=== PATIENT | female | born 1955 | race African-American/Black ===

== ENCOUNTER 2016-08-01 09:50 | Emergency (ER) | payer MEDICARE, MEDICAID ==
[2016-08-01 10:13] VITALS: BP 154/80
[2016-08-01] MEDS ORDERED: LISINOPRIL 10 MG TABLET PO ONE (10:22)
[2016-08-01] MEDS ORDERED: METOPROLOL TARTRATE 25 MG TABLET PO ONE (10:23)
--- NOTE | 2016-08-01 10:26 | ER Document Report ---
ED Blood Pressure Problem - General Chief Complaint: Blood Pressure Problem Stated Complaint: BLOOD PRESSURE PROBLEMS Time Seen by Provider: 08/01/16 10:15 Notes: The patient is a 61-year-old female, past medical history RSD, anemia, hypertension, presents from the pain management clinic after her blood pressure was noticed to be 208/98. She left her lisinopril 10 mg daily and metoprolol 25 mg daily in [place] 2 weeks ago and has not had her blood pressure medications. She is unable to fill the prescription until 3 days from now when she received a check. She is under a lot of stress at home. Denies chest pain , shortness of breath, nausea, abdominal pain, vomiting, back pain, numbness, tingling or headache. TRAVEL OUTSIDE OF THE [place] IN LAST 30 DAYS: No - Related Data Allergies/Adverse Reactions: No Known Allergies Allergy (Verified 08/01/16 10:01) Past Medical History - General Information source: Patient - Social History Smoking Status: Unknown if Ever Smoked Family History: CAD, DM, Thyroid Disfunction, Other Patient has suicidal ideation: No Patient has homicidal ideation: No - Past Medical History Cardiac Medical History: Reports: Hx Hypercholesterolemia, Hx Hypertension Denies: Hx Congestive Heart Failure, Hx Coronary Artery Disease, Hx DVT, Hx Pulmonary Embolism Pulmonary Medical History: Reports: Hx Bronchitis, Hx COPD Neurological Medical History: Reports: Hx Migraine, Hx Seizures Endocrine Medical History: Denies: Hx Diabetes Mellitus Type 1, Hx Diabetes Mellitus Type 2, Hx Hyperthyroidism, Hx Hypothyroidism Renal/ Medical History: Denies: Hx Peritoneal Dialysis GI Medical History: Reports: Hx Gastroesophageal Reflux Disease. Denies: Hx Cirrhosis, Hx Hepatitis Musculoskeltal Medical History: Reports Hx Arthritis Psychiatric Medical History: Reports: Hx Depression Infectious Medical History: Denies: Hx Hepatitis Past Surgical History: Reports: Hx Hysterectomy, Hx Orthopedic Surgery - Left ankle fusion., Hx Vascular Surgery - Right carotid artery stent, 2011. Coiling of intracerebral aneurysm, 2011., Other - Colonoscopy in the . - Immunizations Immunizations up to date: No Hx Diphtheria, Pertussis, Tetanus Vaccination: No Review of Systems - Review of Systems Notes: REVIEW OF SYSTEMS: CONSTITUTIONAL: -fevers, -chills EENT: -eye pain, -difficulty swallowing, -nasal congestion CARDIOVASCULAR:-chest pain, -syncope. RESPIRATORY: -cough, -SOB GASTROINTESTINAL: -abdominal pain, -nausea, -vomiting, -diarrhea GENITOURINARY: -dysuria, -hematuria MUSCULOSKELETAL: -back pain, -neck pain SKIN: -rash or skin lesions. HEMATOLOGIC: -easy bruising or bleeding. LYMPHATIC: -swollen, enlarged glands. NEUROLOGICAL: -altered mental status or loss of consciousness, -headache, - neurologic symptoms PSYCHIATRIC: -anxiety, -depression. ALL OTHER SYSTEMS REVIEWED AND NEGATIVE. Physical Exam - Vital signs Vitals: Temp Pulse Resp BP Pulse Ox 97.9 F 55 L 20 154/80 H 98 08/01/16 10:08/01/16 10:08/01/16 10:08/01/16 10:08/01/16 10:01 - Notes Notes: PHYSICAL EXAMINATION: GENERAL: Well-appearing, well-nourished and in no acute distress. HEAD: Atraumatic, normocephalic. EYES: Pupils equal round and reactive to light, extraocular movements intact, sclera anicteric, conjunctiva are normal. ENT: nares patent, oropharynx clear without exudates. Moist mucous membranes. NECK: Normal range of motion, supple without lymphadenopathy LUNGS: Breath sounds clear to auscultation bilaterally and equal. No wheezes rales or rhonchi. HEART: Regular rate and rhythm without murmurs ABDOMEN: Soft, nontender, normoactive bowel sounds. No guarding, no rebound. No masses appreciated. EXTREMITIES: Normal range of motion, no pitting or edema. No cyanosis. NEUROLOGICAL: Cranial nerves grossly intact. Normal speech, normal gait. Normal sensory and motor exams. PSYCH: Normal mood, normal affect. SKIN: Warm, Dry, normal turgor, no rashes or lesions noted. Course - Re-evaluation Re-evalutation: Patient with asymptomatic hypertension because she has not taken her blood pressure medications in 2 weeks. Her blood pressure in the emergency room is 154/92. Instructed her to call her primary care physician to have her blood pressure rechecked. Patient says that she have her lisinopril and metoprolol waiting for her at the [facility], but she is unable to afford them for 3 days. Her with the dose today and also prescription in case she is unable to mixing picker tender her prescriptions. Given return precautions and she understands. - Vital Signs Vital signs: Temp Pulse Resp BP Pulse Ox 97.9 F 55 L 20 154/80 H 98 08/01/16 10:01 08/01/16 10:01 08/01/16 10:18 08/01/16 10:01 08/01/16 10:01 Discharge - Discharge Clinical Impression: Hypertension Qualifiers: Hypertension type: unspecified secondary hypertension Qualified Code(s): I15.9 - Secondary hypertension, unspecified Condition: Stable Disposition: HOME, SELF-CARE Additional Instructions: You must call Dr. Santana for refill of your blood pressure medications and to have your blood pressure rechecked. HIGH BLOOD PRESSURE REQUIRING TREATMENT: Your blood pressure is high. This is called "hypertension." Today's reading was 156/92 (normal is less than 140/90). Your history and exam suggest that this is not a temporary problem. You need treatment of your blood pressure. If left untreated, high blood pressure greatly increases your risk of heart attack and stroke. Please don't ignore this problem. If you have blood pressure medicine but aren't using it regularly, start taking it again. Some simple things you can do to help are: Get some aerobic exercise for at least 20 minutes on a daily basis. (See your doctor before beginning any new exercise program.) Eat a low-fat diet. Lose excess weight. Avoid salty foods and avoid adding salt to any of the foods you eat. Avoid diet pills, decongestants, "energizing" herbs, and other medicines that elevate blood pressure. There are many different medicines that treat blood pressure. If your medication causes unpleasant side effects, call your doctor. There are others you can try. Treating hypertension is a life-long investment in your health. ANGIOTENSIN CONVERTING ENZYME INHIBITOR MEDICATION: "CARLA inhibitor" drugs are used to lower high blood pressure (or to reduce the "work" of the heart in patients with heart failure). These drugs block an enzyme that makes your blood vessels constrict and makes you retain salt. The result is lower blood pressure. CARLA inhibitors cause few side effects. The most common side effect is a dry nagging cough. Occasionally, lightheadedness may occur while you get used to the medicine. Some patients may retain extra potassium (this is a problem if you are taking potassium supplements, potassium-containing salt substitutes, or a potassium-retaining drug such as triamterene, spironolactone, or amiloride) . If you are taking lithium, the lithium level must be rechecked after starting an CARLA inhibitor. CARLA inhibitors should NOT be used during . Contact the doctor or return if you develop severe lightheadedness, wheeze , weakness, palpitations or other new symptoms. BETA BLOCKERS: You have been given a prescription for a beta-donnie medication. This class of drugs is used for many purposes, including angina, high blood pressure , heart rhythm disturbances, tremors, and migraines. The medication works by interfering with the effects of the sympathetic nervous system (the sympathetic system has adrenaline-like effects of constricting blood vessels, increasing heart rate, and increasing blood pressure). This medication is usually well-tolerated. However, some patients have side effects such as fatigue, depression, or dizziness. Persons with asthma may develop wheezing from this medicine. Contact your doctor if you are bothered by any side effects. Do not take any cold or allergy medication without first consulting your doctor. Do not stop the medicine without consulting your doctor, as a "rebound " worsening of your condition can result. FOLLOW-UP CARE: If you have been referred to a physician for follow-up care, call the physician s office for an appointment as you were instructed or within the next two days. If you experience worsening or a significant change in your symptoms, notify the physician immediately or return to the Emergency Department at any time for re-evaluation. Prescriptions: Lisinopril 10 mg PO DAILY #30 tablet Metoprolol Tartrate 25 mg PO DAILY #30 tablet Referrals: NAJMA SANTANA, MASSIMOC [COMMUNITY BASED STAFF] - Follow up as needed
== END 2016-08-01 10:34 | disposition home or self-care (01) ==
LOC: ER 09:50
DX: I15.9 Secondary hypertension, unspecified (principal); J44.9 Chronic obstructive pulmonary disease, unspecified; E78.00 Pure hypercholesterolemia, unspecified; Z90.710 Acquired absence of both cervix and uterus; Z98.1 Arthrodesis status; Z91.128 Patient's intentional underdosing of medication regimen for other reason; Z91.14 Patient's other noncompliance with medication regimen
CPT/HCPCS: 99283; A9270 ×2

== ENCOUNTER 2016-12-20 11:42 | Emergency (ER) | payer MEDICARE, MEDICAID ==
[2016-12-20 13:11] LABS: ABSOLUTE BASOPHILS # (AUTO) 0.1 10^3/uL (0.0-0.2); ABSOLUTE EOSINOPHILS # (AUTO) 0.2 10^3/uL (0.0-0.6); ABSOLUTE MONOCYTES (AUTO) 0.6 10^3/uL (0.1-1.4); ABSOLUTE NEUT (AUTO) 7.4 10^3/uL (1.7-8.2); BASOPHILS % (AUTO) 1.2 % (0-2); EOSINOPHILS % (AUTO) 2.1 % (0-6); HEMATOCRIT 42.4 % (36.0-47.0); HEMOGLOBIN 13.9 g/dL (12.0-15.5); HGB HCT DIFFERENCE -0.7; LYMPHOCYTES % (AUTO) 26.5 % (13-45); MEAN CORPUSCULAR HEMOGLOBIN 27.7 pg (27.0-33.4); MEAN CORPUSCULAR HGB CONC 32.8 g/dL (32.0-36.0); MEAN CORPUSCULAR VOLUME 85 fl (80-97); MONOCYTES % (AUTO) 5.2 % (3-13); RED BLOOD COUNT 5.01 10^6/uL (3.72-5.28); WHITE BLOOD COUNT 11.5 10^3/uL (4.0-10.5)
--- NOTE | 2016-12-20 13:18 | RADIOLOGY REPORT (SQ) ---
EXAM DESCRIPTION: CHEST PA/LAT COMPLETED DATE/TIME: 12/20/2016 1:07 pm REASON FOR STUDY: cough COMPARISON: 07/09/2015. EXAM PARAMETERS: NUMBER OF VIEWS: two views TECHNIQUE: Digital Frontal and Lateral radiographic views of the chest acquired. RADIATION DOSE: NA LIMITATIONS: none FINDINGS: LUNGS AND PLEURA: No opacities, masses or pneumothorax. No pleural effusion. MEDIASTINUM AND HILAR STRUCTURES: No masses or contour abnormalities. HEART AND VASCULAR STRUCTURES: Heart normal size. No evidence for failure. BONES: No acute findings. HARDWARE: Vascular access port with the tip directed into the mid neck on the right side. OTHER: No other significant finding. IMPRESSION: NO SIGNIFICANT RADIOGRAPHIC FINDING IN THE CHEST. VASCULAR ACCESS PORT DESCRIBED. TECHNICAL DOCUMENTATION: JOB ID: [id number] [employer]- All Rights Reserved
[2016-12-20 13:38] LABS: ALANINE AMINOTRANSFERASE 33 U/L (9-52); ALBUMIN 4.5 g/dL (3.5-5.0); ALKALINE PHOSPHATASE 104 U/L (38-126); ANION GAP 15 (5-19); ASPARTATE AMINO TRANSFERASE 23 U/L (14-36); BILIRUBIN,DIRECT 0.3 mg/dL (0.0-0.4); BILIRUBIN,TOTAL 0.4 mg/dL (0.2-1.3); BLOOD UREA NITROGEN 14 mg/dL (7-20); CALCIUM 10.1 mg/dL (8.4-10.2); CARBON DIOXIDE 22 mmol/L (22-30); CHLORIDE 109 mmol/L (98-107); CREATININE RESULT 0.76 mg/dL (0.52-1.25); GLUCOSE 75 mg/dL (75-110); POTASSIUM 4.2 mmol/L (3.6-5.0); SODIUM 146.1 mmol/L (137-145); TOTAL PROTEIN 7.9 g/dL (6.3-8.2)
--- NOTE | 2016-12-20 14:40 | ER Document Report ---
ED Cardiac - General Chief Complaint: Chest Pain Stated Complaint: CHEST PAIN Time Seen by Provider: 12/20/16 12:03 Mode of Arrival: Ambulatory Information source: Patient Notes: Patient states she had chest and throat pain starting yesterday. It has been constant. It is mainly substernal and a pressure sensation. Nothing makes it better or worse. Does not radiate. It is been mild to moderate. She denies any abdominal pain. No vomiting or diarrhea. She has has cough and congestion. TRAVEL OUTSIDE OF THE [place] IN LAST 30 DAYS: No - Related Data Allergies/Adverse Reactions: No Known Allergies Allergy (Verified 12/20/16 11:54) Past Medical History - General Information source: Patient - Social History Smoking Status: Current Every Day Smoker Chew tobacco use (# tins/day): No Frequency of alcohol use: None Drug Abuse: None Family History: CAD, DM, Thyroid Disfunction, Other Patient has suicidal ideation: No Patient has homicidal ideation: No - Past Medical History Cardiac Medical History: Reports: Hx Hypercholesterolemia, Hx Hypertension Denies: Hx Congestive Heart Failure, Hx Coronary Artery Disease, Hx DVT, Hx Pulmonary Embolism Pulmonary Medical History: Reports: Hx Bronchitis, Hx COPD Neurological Medical History: Reports: Hx Migraine, Hx Seizures Endocrine Medical History: Denies: Hx Diabetes Mellitus Type 1, Hx Diabetes Mellitus Type 2, Hx Hyperthyroidism, Hx Hypothyroidism Renal/ Medical History: Denies: Hx Peritoneal Dialysis GI Medical History: Reports: Hx Gastroesophageal Reflux Disease. Denies: Hx Cirrhosis, Hx Hepatitis Musculoskeltal Medical History: Reports Hx Arthritis Psychiatric Medical History: Reports: Hx Depression Infectious Medical History: Denies: Hx Hepatitis Past Surgical History: Reports: Hx Hysterectomy, Hx Orthopedic Surgery - Left ankle fusion., Hx Vascular Surgery - Right carotid artery stent, 2011. Coiling of intracerebral aneurysm, 2011., Other - Colonoscopy in the . - Immunizations Immunizations up to date: No Hx Diphtheria, Pertussis, Tetanus Vaccination: No Review of Systems - Review of Systems Constitutional: Chills, Malaise Cardiovascular: Chest pain. denies: Palpitations Respiratory: Cough, Short of breath -: Yes All other systems reviewed and negative Physical Exam - Vital signs Vitals: Temp Pulse Resp BP Pulse Ox 98.4 F 59 L 18 141/73 H 100 12/20/16 11:54 12/20/16 11:54 12/20/16 11:54 12/20/16 11:54 12/20/16 11:54 Interpretation: Hypertensive - General General appearance: Appears well, Alert In distress: None - HEENT Head: Normocephalic, Atraumatic Eyes: Normal Pupils: PERRL - Respiratory Respiratory status: No respiratory distress Chest status: Nontender Breath sounds: Rhonchi - bialt Chest palpation: Normal - Cardiovascular Rhythm: Regular Heart sounds: Normal auscultation Murmur: No - Abdominal Inspection: Normal Distension: No distension Bowel sounds: Normal Tenderness: Nontender Organomegaly: No organomegaly - Back Back: Normal, Nontender - Extremities General upper extremity: Normal inspection, Nontender, Normal color, Normal ROM , Normal temperature General lower extremity: Normal inspection, Nontender, Normal color, Normal ROM , Normal temperature, Normal weight bearing. No: Candice's sign - Neurological Neuro grossly intact: Yes Cognition: Normal Orientation: AAOx4 [place] Coma Scale Eye Opening: Spontaneous [place] Coma Scale Verbal: Oriented [place]anna Coma Scale Motor: Obeys Commands [place] Coma Scale Total: 15 Speech: Normal Motor strength normal: LUE, RUE, LLE, RLE Sensory: Normal - Psychological Associated symptoms: Normal affect, Normal mood - Skin Skin Temperature: Warm Skin Moisture: Dry Skin Color: Normal Course - Vital Signs Vital signs: Temp Pulse Resp BP Pulse Ox 98.4 F 59 L 18 141/73 H 100 12/20/16 11:54 12/20/16 11:54 12/20/16 11:54 12/20/16 11:54 12/20/16 11:54 - Laboratory Result Diagrams: 12/20/16 13:00 12/20/16 13:00 Laboratory results interpreted by me: 12/20/16 12/20/16 13:00 13:00 WBC 11.5 H RDW 16.0 H Sodium 146.1 H Chloride 109 H - Diagnostic Test Radiology reviewed: Image reviewed, Reports reviewed - No evidence of infiltrate or edema Discharge - Discharge Clinical Impression: URI (upper respiratory infection) Qualifiers: URI type: unspecified URI Qualified Code(s): J06.9 - Acute upper respiratory infection, unspecified Condition: Stable Disposition: HOME, SELF-CARE Instructions: Upper Respiratory Illness ([facility]) Additional Instructions: Please call your primary care physician as soon as possible to arrange follow- up. Prescriptions: Benzonatate [Tessalon Perle 100 mg Capsule] 100 mg PO Q8HP PRN #40 cap PRN Reason: Cefdinir 300 mg PO BID #14 capsule Forms: Return to Work
[2016-12-20 14:57] VITALS: BP 135/70
--- NOTE | 2016-12-21 00:02 | EKG REPORT ---
SEVERITY:- NORMAL ECG - SINUS RHYTHM : Confirmed by: Rhonda Car 21-Dec-2016 00:01:32
== END 2016-12-20 14:57 | disposition home or self-care (01) ==
LOC: ER 11:42
DX: J06.9 Acute upper respiratory infection, unspecified (principal); R07.9 Chest pain, unspecified; R07.0 Pain in throat; F17.200 Nicotine dependence, unspecified, uncomplicated
CPT/HCPCS: 36415; 71020; 80053; 85025; 93005; 93010; 99285

== ENCOUNTER 2017-02-06 20:02 | Emergency (ER) | payer MEDICARE, MEDICAID ==
[2017-02-06 20:32] LABS: ABSOLUTE BASOPHILS # (AUTO) 0.1 10^3/uL (0.0-0.2); ABSOLUTE EOSINOPHILS # (AUTO) 0.1 10^3/uL (0.0-0.6); ABSOLUTE LYMPHOCYTES (AUTO) 1.9 10^3/uL (0.5-4.7); ABSOLUTE MONOCYTES (AUTO) 0.6 10^3/uL (0.1-1.4); BASOPHILS % (AUTO) 0.7 % (0-2); EOSINOPHILS % (AUTO) 0.7 % (0-6); HEMATOCRIT 43.7 % (36.0-47.0); HEMOGLOBIN 14.3 g/dL (12.0-15.5); LYMPHOCYTES % (AUTO) 22.5 % (13-45); MEAN CORPUSCULAR HEMOGLOBIN 28.2 pg (27.0-33.4); MEAN CORPUSCULAR HGB CONC 32.8 g/dL (32.0-36.0); MEAN CORPUSCULAR VOLUME 86 fl (80-97); MONOCYTES % (AUTO) 6.8 % (3-13); PLATELET COUNT 301 10^3/uL (150-450); RED BLOOD COUNT 5.08 10^6/uL (3.72-5.28); RED CELL DISTRIBUTION WIDTH 14.8 % (11.5-14.0); SEGMENTED NEUTROPHILS % (AUTO) 69.3 % (42-78); TOTAL CELLS COUNTED % (AUTO) 100 %; WHITE BLOOD COUNT 8.6 10^3/uL (4.0-10.5)
[2017-02-06 20:52] LABS: ALANINE AMINOTRANSFERASE 21 U/L (9-52); ALBUMIN 4.5 g/dL (3.5-5.0); ALKALINE PHOSPHATASE 97 U/L (38-126); ANION GAP 10 (5-19); ASPARTATE AMINO TRANSFERASE 23 U/L (14-36); BILIRUBIN,DIRECT 0.3 mg/dL (0.0-0.4); BILIRUBIN,TOTAL 0.3 mg/dL (0.2-1.3); BLOOD UREA NITROGEN 9 mg/dL (7-20); CALCIUM 9.8 mg/dL (8.4-10.2); CARBON DIOXIDE 25 mmol/L (22-30); CHLORIDE 106 mmol/L (98-107); GLUCOSE 93 mg/dL (75-110); POTASSIUM 3.5 mmol/L (3.6-5.0); SODIUM 141.2 mmol/L (137-145); TOTAL PROTEIN 8.1 g/dL (6.3-8.2)
--- NOTE | 2017-02-06 20:59 | ER Document Report ---
ED Medical Screen (RME) - General Chief Complaint: Headache, Worst Ever Stated Complaint: SEVERE HEADACHE Time Seen by Provider: 02/06/17 20:46 Notes: 61-year-old female, chief complaint of tripping and falling and hitting her right head/neck area on a chair, states she has had a bad headache since that time, states she vomited, she had a fall injury this morning and she has had a progressively worsening headache throughout the day. She is not on a blood thinner. She denies visual changes, focal numbness or weakness. She denies any other areas of pain including chest, hip, back. Past medical history of both migraines and brain aneurysm. TRAVEL OUTSIDE OF THE [place] IN LAST 30 DAYS: No - Related Data Allergies/Adverse Reactions: No Known Allergies Allergy (Verified 12/20/16 11:54) Past Medical History - Past Medical History Cardiac Medical History: Reports: Hx Hypercholesterolemia, Hx Hypertension Denies: Hx Congestive Heart Failure, Hx Coronary Artery Disease, Hx DVT, Hx Pulmonary Embolism Pulmonary Medical History: Reports: Hx Bronchitis, Hx COPD Neurological Medical History: Reports: Hx Migraine, Hx Seizures Endocrine Medical History: Denies: Hx Diabetes Mellitus Type 1, Hx Diabetes Mellitus Type 2, Hx Hyperthyroidism, Hx Hypothyroidism Renal/ Medical History: Denies: Hx Peritoneal Dialysis GI Medical History: Reports: Hx Gastroesophageal Reflux Disease. Denies: Hx Cirrhosis, Hx Hepatitis Musculoskeltal Medical History: Reports Hx Arthritis Psychiatric Medical History: Reports: Hx Depression Infectious Medical History: Denies: Hx Hepatitis Past Surgical History: Reports: Hx Hysterectomy, Hx Orthopedic Surgery - Left ankle fusion., Hx Vascular Surgery - Right carotid artery stent, 2011. Coiling of intracerebral aneurysm, 2011., Other - Colonoscopy in the . - Immunizations Immunizations up to date: No Hx Diphtheria, Pertussis, Tetanus Vaccination: No Physical Exam - Vital signs Vitals: Temp Pulse Resp BP Pulse Ox 98.7 F 59 L 20 189/89 H 98 02/06/17 20:02 02/06/17 20:02 02/06/17 20:02 02/06/17 20:02 02/06/17 20:02 - Neurological Neuro grossly intact: Yes Cognition: Normal Orientation: AAOx4 [place] Coma Scale Eye Opening: Spontaneous [place] Coma Scale Verbal: Oriented [place] Coma Scale Motor: Obeys Commands Rosanna Coma Scale Total: 15 Speech: Normal Cranial nerves: Normal Cerebellar coordination: Normal Motor strength normal: LUE, RUE, LLE, RLE 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 This apparently was initiated on protocol from [facility]. Patient with no midline cervical tenderness, only over the cervical spinal areas. Patient uncomfortable but no focal neurological deficits. All results are still pending , I'm told patient has a room assignment already, will have pending results obtained before additional tests are ordered. - Vital Signs Vital signs: Temp Pulse Resp BP Pulse Ox 98.7 F 59 L 20 189/89 H 98 02/06/17 20:02 02/06/17 20:02 02/06/17 20:02 02/06/17 20:02 02/06/17 20:02 - Laboratory Result Diagrams: 02/06/17 20:20 02/06/17 20:20 Laboratory results interpreted by me: 02/06/17 20:20 RDW 14.8 H
--- NOTE | 2017-02-06 21:32 | RADIOLOGY REPORT (SQ) ---
EXAM DESCRIPTION: CT HEAD WITHOUT COMPLETED DATE/TIME: 02/06/2017 8:39 pm REASON FOR STUDY: headache COMPARISON: CT brain 07/09/2015, 01/22/2016 TECHNIQUE: Axial images acquired through the brain without intravenous contrast. Images reviewed wi th bone, brain and subdural windows. Images stored on PACS. All CT scanners at this facility use dose modulation, iterative reconstruction, and/or weight based d osing when appropriate to reduce radiation dose to as low as reasonably achievable (ALARA). [facility]: Dose Right [facility]: CareDose [facility]: Dose Right [facility]: Teradose 4D [facility]: [employer] RADIATION DOSE: CT Rad equipment meets quality standard of care and radiation dose reduction techniq ues were employed. CTDIvol: 67.0 mGy. DLP: 1182 mGy-cm. mGy. LIMITATIONS: None. FINDINGS: VENTRICLES: Normal size and contour. CEREBRUM: Old infarct in the right basal ganglia. Minimal bifrontal and biparietal small vessel isch emic change in the deep hemispheric white matter, stable. Old right carotid terminus region aneurysm coil. CEREBELLUM: No masses. No hemorrhage. No alteration of density. No evidence for acute infarction. EXTRAAXIAL SPACES: No fluid collections. No masses. ORBITS AND GLOBE: No intra- or extraconal masses. Normal contour of globe without masses. CALVARIUM: No fracture. PARANASAL SINUSES: No fluid or mucosal thickening. SOFT TISSUES: No mass or hematoma. OTHER: No other significant finding. 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 Spotty chronic small vessel ischemic change in the hemispheric white matter No acute findings. In particular, no acute intracranial hemorrhage is identified EVIDENCE OF ACUTE STROKE: NO. COMMENT: Quality ID # [id number]: Final reports with documentation of one or more dose reduction techniques (e.g., Automated exposure control, adjustment of the mA and/or kV according to patient size, use of iterative reconstruction technique) TECHNICAL DOCUMENTATION: JOB ID: [id number]- All Rights Reserved
[2017-02-06] MEDS ORDERED: METOCLOPRAMIDE HCL INJ/PF 10 MG/2 ML SDV IV ONE (21:37)
[2017-02-06] MEDS ORDERED: DEXAMETHASONE SOD PHOSPHATE INJ 4 MG/1 ML VIAL IV ONE (21:37)
[2017-02-06] MEDS ORDERED: KETOROLAC TROMETHAMINE INJ/PF 30 MG/1 ML SDV IV ONE (21:37)
[2017-02-06] MEDS ORDERED: HYDRALAZINE HCL INJ/PF 20 MG/1 ML SDV IV ONE (21:37)
[2017-02-06] MEDS ORDERED: DIPHENHYDRAMINE HCL 50 MG/ML VIAL IV ONE (21:37)
--- NOTE | 2017-02-06 22:22 | ER Document Report ---
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 Is accompanied by some severe photophobia. She has no nausea vomiting or focal neurologic symptoms. She said that a few hours ago she got lip tingling but that is better. She has not taken anything for the pain. She does not take blood thinners. She has no neck pain or stiffness. No fever. TRAVEL OUTSIDE OF THE [place] IN LAST 30 DAYS: No - Related Data Allergies/Adverse Reactions: No Known Allergies Allergy (Verified 12/20/16 11:54) Past Medical History - Social History Smoking Status: Unknown if Ever Smoked Frequency of alcohol use: None Drug Abuse: None Family History: CAD, DM, Thyroid Disfunction, Other Patient has suicidal ideation: No Patient has homicidal ideation: No - Past Medical History Cardiac Medical History: Reports: Hx Hypercholesterolemia, Hx Hypertension Denies: Hx Congestive Heart Failure, Hx Coronary Artery Disease, Hx DVT, Hx Pulmonary Embolism Pulmonary Medical History: Reports: Hx Bronchitis, Hx COPD Neurological Medical History: Reports: Hx Migraine, Hx Seizures Endocrine Medical History: Denies: Hx Diabetes Mellitus Type 1, Hx Diabetes Mellitus Type 2, Hx Hyperthyroidism, Hx Hypothyroidism Renal/ Medical History: Denies: Hx Peritoneal Dialysis GI Medical History: Reports: Hx Gastroesophageal Reflux Disease. Denies: Hx Cirrhosis, Hx Hepatitis Musculoskeltal Medical History: Reports Hx Arthritis Psychiatric Medical History: Reports: Hx Depression Infectious Medical History: Denies: Hx Hepatitis Past Surgical History: Reports: Hx Hysterectomy, Hx Orthopedic Surgery - Left ankle fusion., Hx Vascular Surgery - Right carotid artery stent, 2012. Coiling of intracerebral aneurysm, 2012., Other - Colonoscopy in the . - Immunizations Immunizations up to date: No Hx Diphtheria, Pertussis, Tetanus Vaccination: No Review of Systems - Review of Systems Notes: REVIEW OF SYSTEMS GEN: Denies fever, chills, weight loss ENT: Denies sore throat, nasal discharge, ear pain EYES: Denies blurry vision, eye pain, discharge. Positive photophobia. CV: Denies chest pain, palpitations, edema RESP: Denies cough, shortness of breath, wheezing GI: Denies abdominal pain, nausea, vomiting, diarrhea MSK: Denies joint pain/swelling, edema, SKIN: Denies rash, skin lesions LYMPH: Denies swollen glands/lymph nodes NEURO: Positive headache, denies focal weakness or numbness, dizziness PSYCH: Denies depression, suicidal or homicidal ideation PHYSICAL EXAMINATION General: No acute distress, well-nourished has her eyes covered up. Head: Atraumatic, normocephalic ENT: Mouth normal, oropharynx moist, no exudates or tonsillar enlargement Eyes: Conjunctiva normal, pupils equal, lids normal Neck: No JVD, supple, no guarding CVS: Normal rate, regular rhythm, no murmurs Resp: No resp distress, equal and normal breath sounds bilaterally GI: Nondistended, soft, no tenderness to palpation, no rebound or guarding Ext: No deformities, no edema, normal range of motion in upper and lower ext Back: No CVA or midline TTP Skin: No rash, warm Lymphatic: No lymphadeopathy noted Neuro: Awake, alert. Face symmetric. GCS 15. Drift. Physical Exam - Vital signs Vitals: Temp Pulse Resp BP Pulse Ox 98.7 F 59 L 20 189/89 H 98 02/06/17 20:02 02/06/17 20:02 02/06/17 20:02 02/06/17 20:02 02/06/17 20:02 Course - Re-evaluation Re-evalutation: 02/06/17 22:22 61-year-old lady with history of headaches, some with migrainous features, and coiled aneurysms presents with headache after a fall which has migrainous features. No fever or neck stiffness. She does say that is worse than her usual headaches, and there are several notes documenting "worst headache of her life" in the nursing notes. That said, it was directly related to a trauma. Time course would suggest this is a postconcussive type headache with migrainous features. I do not think she has a subarachnoid bleed. A CT head was ordered at triage which is read normal. She also has significant hypertension which is either a result of the headache or could be contributing to it. Will gently lower her pressure with some hydralazine. Will reassess. 02/06/17 22:22 02/06/17 22:26 02/06/17 22:[address] is negative. She was reassessed at 10:45 PM. Her photophobia is much better and her headache is slightly better. I will give her a round of narcotic. Plan to discharge with NSAID to follow-up with primary care - Vital Signs Vital signs: Temp Pulse Resp BP Pulse Ox 98.7 F 59 L 20 189/89 H 98 02/06/17 20:02 02/06/17 20:02 02/06/17 20:02 02/06/17 20:02 02/06/17 20:02 - Laboratory Result Diagrams: 02/06/17 20:20 02/06/17 20:20 Laboratory results interpreted by me: 02/06/17 02/06/17 20:20 20:20 RDW 14.8 H Potassium 3.5 L - Diagnostic Test Radiology reviewed: Image reviewed, Reports reviewed Discharge - Discharge Clinical Impression: Headache, post-traumatic, acute Concussion Qualifiers: Encounter type: initial encounter Loss of consciousness presence/duration: without LOC Qualified Code(s): S06.0X0A - Concussion without loss of consciousness, initial encounter Condition: Good Disposition: HOME, SELF-CARE Instructions: Concussion ([facility]), Migraine Headache ([facility]) Prescriptions: Naproxen 500 mg PO BID 7 Days #14 tablet Referrals: NAJMA ALONZO, DREDGE MATE-C [Primary Care Provider] - Follow up as needed
[2017-02-06] MEDS ORDERED: MORPHINE SULFATE 10 MG/ML INJ IV ONE (22:45)
[2017-02-07 00:11] VITALS: BP 139/59
== END 2017-02-07 00:14 | disposition home or self-care (01) ==
LOC: ER 20:02
DX: G44.319 Acute post-traumatic headache, not intractable (principal); S06.0X0A Concussion without loss of consciousness, initial encounter; W08.XXXA Fall from other furniture, initial encounter; E78.00 Pure hypercholesterolemia, unspecified; I10 Essential (primary) hypertension; J44.9 Chronic obstructive pulmonary disease, unspecified; Z90.710 Acquired absence of both cervix and uterus
CPT/HCPCS: 99284; 96374; 96375; 36415; 85025; 80053; 70450; J1100; J1200; J0360; J1885; J2765; J2270

== ENCOUNTER 2019-07-09 15:31 | Emergency (ER) | payer MEDICARE, MEDICAID ==
--- NOTE | 2019-07-09 16:01 | ER Document Report ---
ED Medical Screen (RME) - General Chief Complaint: Flank Pain Stated Complaint: RIGHT FLANK PAIN Time Seen by Provider: 07/09/19 15:53 Primary Care Provider: NAJMA ALONZO FNP-C [Primary Care Provider] - Follow up as needed Mode of Arrival: Wheelchair Notes: HPI; 64-year-old female presents emergency room via EMS for complaints. States she initially called EMS for right flank pain. Was given 30 mg of Toradol by EMS with relief of her flank pain. Is now complaining of a lump to her left arm, worsening chronic upper back and neck pain. Also states she is not had a bowel movement in 3 days even though she has been taking stool softeners. Complains of loss of taste and smell that started a week ago. She denies any recent travel. She denies any COVID-19 exposure. PE: Alert and oriented x3. Moderate distress noted. Lungs clear to auscultation without rales, rhonchi, or wheezes. Heart: Regular rate rhythm without murmurs, rubs, gallops. I have greeted and performed a rapid initial assessment of this patient. A comprehensive ED assessment and evaluation of the patient, analysis of test results and completion of the medical decision making process will be conducted by additional ED providers. I have specifically instructed the patient or family members with the patient to immediately return to any nursing staff should anything change in the patient's condition or with their chief complaint. TRAVEL OUTSIDE OF THE [place] IN LAST 30 DAYS: No - Related Data Allergies/Adverse Reactions: No Known Allergies Allergy (Verified 07/09/19 15:52) Past Medical History - Social History Frequency of alcohol use: None Drug Abuse: Marijuana - Past Medical History Cardiac Medical History: Reports: Hx Hypercholesterolemia, Hx Hypertension Denies: Hx Congestive Heart Failure, Hx Coronary Artery Disease, Hx DVT, Hx Pulmonary Embolism Pulmonary Medical History: Reports: Hx Bronchitis, Hx COPD Neurological Medical History: Reports: Hx Migraine, Hx Seizures Endocrine Medical History: Denies: Hx Diabetes Mellitus Type 1, Hx Diabetes Mellitus Type 2, Hx Hyperthyroidism, Hx Hypothyroidism Renal/ Medical History: Denies: Hx Peritoneal Dialysis GI Medical History: Reports: Hx Gastroesophageal Reflux Disease. Denies: Hx Cirrhosis, Hx Hepatitis Musculoskeltal Medical History: Reports Hx Arthritis Psychiatric Medical History: Reports: Hx Depression Infectious Medical History: Denies: Hx Hepatitis Past Surgical History: Reports: Hx Hysterectomy, Hx Orthopedic Surgery - Left ankle fusion., Hx Vascular Surgery - Right carotid artery stent, 2012. Coiling of intracerebral aneurysm, 2011., Other - Colonoscopy in the 1980s. - Immunizations Immunizations up to date: No Hx Diphtheria, Pertussis, Tetanus Vaccination: No Physical Exam - Vital signs Vitals: Temp Pulse Resp BP Pulse Ox 98.3 F 67 16 160/88 H 96 07/09/19 15:38 07/09/19 15:38 07/09/19 15:38 07/09/19 15:38 07/09/19 15:38 Course - Vital Signs Vital signs: Temp Pulse Resp BP Pulse Ox 98.3 F 67 16 160/88 H 96 07/09/19 15:53 07/09/19 15:38 07/09/19 15:38 07/09/19 15:38 07/09/19 15:38 Doctor's Discharge - Discharge Referrals: NAJMA ALONZO, [employer] ASSOCIATE DRIVER-C [Primary Care Provider] - Follow up as needed
[2019-07-09] MEDS ORDERED: DICYCLOMINE HCL INJ 20 MG/2 ML AMPULE IM ONE (16:41)
--- NOTE | 2019-07-09 16:45 | RADIOLOGY REPORT (SQ) ---
EXAM DESCRIPTION: KUB/ABDOMEN (SINGLE VIEW) IMAGES COMPLETED DATE/TIME: 07/09/2019 4:14 pm REASON FOR STUDY: constipation COMPARISON: None. NUMBER OF VIEWS: One view. TECHNIQUE: Supine radiographic image of the abdomen acquired. LIMITATIONS: None. FINDINGS: BOWEL GAS PATTERN: Normal bowel gas pattern. No dilated loops. Moderate severe constipati on. CALCIFICATIONS: No suspicious calcifications. SOFT TISSUES: No gross mass or suggestion of organomegaly. HARDWARE: None in the abdomen. BONES: No acute fracture. Degenerative changes at the symphysis pubis. A well-defined os ossific de nsity superior and adjacent to the greater trochanter of the left hip maybe related prior remote inju ry. OTHER: No other significant finding. IMPRESSION: 1. NO RADIOGRAPHIC EVIDENCE FOR ACUTE ABDOMINAL DISEASE. Moderate severe constipation. TECHNICAL DOCUMENTATION: JOB ID: [id number] 2010 [employer]- All Rights Reserved Reading location - IP/workstation name: [email or web address]
--- NOTE | 2019-07-09 17:11 | ER Document Report ---
ED GI/ - General Chief Complaint: Flank Pain Stated Complaint: RIGHT FLANK PAIN Time Seen by Provider: 07/09/19 15:53 Primary Care Provider: NAJMA ALONZO FNP-C [COMMUNITY BASED STAFF] - Follow up as needed Mode of Arrival: Wheelchair Notes: CHIEF COMPLAINT: Multiple complaints HPI: 64-year-old female presenting with multiple complaints. Patient states she has had constipation issues since 1992. Has not moved her bowels in 3 days. Complains of a sharp cramping sensation in the right upper flank region that began while she was waiting to pay bills today at [facility]. No chest pain no shortness of breath. Patient does relate that although she has not traveled or been in contact with a known positive COVID patient she lost her sense of taste a week or so ago. Patient denies dysuria. She has not had a cough. She does relate that she has gone to her doctor with issues with the abdominal pain previously and "they really have not done anything". ROS: See HPI - all other systems were reviewed and are otherwise negative Constitutional: no fever Eyes: no drainage, no blurred vision ENT: no runny nose, no sore throat Cardiovascular: no chest pain Resp: no SOB, no cough GI: no vomiting, no diarrhea, positive abdominal pain : no dysuria Integumentary: no rash Allergy: no hives Musculoskeletal: no extremity pain or swelling Neurological: no numbness/tingling, no weakness MEDICATIONS: I agree with the patient medications as charted by the RN. ALLERGIES: I agree with the allergies as charted by the RN. PAST MEDICAL HISTORY/PAST SURGICAL HISTORY: Reviewed and agree as charted by RN. SOCIAL HISTORY: Reviewed and agree as charted by RN. FAMILY HISTORY: No significant familial comorbid conditions directly related to patient complaint EXAM: Reviewed vital signs as charted by RN. CONSTITUTIONAL: Alert and oriented and responds appropriately to questions. Well-appearing; well-nourished HEAD: Normocephalic; atraumatic EYES: PERRL; Conjunctivae clear, sclerae non-icteric ENT: normal nose; no rhinorrhea; moist mucous membranes; pharynx without lesions noted, no uvula edema or deviation, no tonsillar hypertrophy, phonation normal NECK: Supple without meningismus; non-tender; no cervical lymphadenopathy, no masses CARD: RRR; no murmurs, no clicks, no rubs, no gallops; symmetric distal pulses RESP: Normal chest excursion without splinting or tachypnea; breath sounds clear and equal bilaterally; no wheezes, no rhonchi, no rales, pulse oximetry 97% on room air not hypoxic ABD/GI: Morbidly obese, normal bowel sounds; non-distended; soft, mild tendern ess through the right flank right upper quadrant region on palpation, no rebound, no guarding; no palpable organomegaly or masses. BACK: The back appears normal and is non-tender to palpation, there is no CVA tenderness EXT: Normal ROM in all joints; non-tender to palpation; no cyanosis, no effusio ns, no edema SKIN: Normal color for age and race; warm; dry; good turgor; no acute lesions noted NEURO: Moves all extremities equally; Motor and sensory function intact PSYCH: The patient's mood and manner are appropriate. Grooming and personal hygiene are appropriate. MDM: 64-year-old female presenting for right flank and upper abdominal pain. Patient is a poor historian and relates multiple complaints that have been longstanding some for years some for weeks or months. Given the patient's age and discomfort will obtain CT imaging of the abdomen to ensure no surgical or infectious process. She had a KUB done through the triage process which showed moderate to severe constipation. Patient has not yet had lab work done but we will add one set of screening cardiac labs given the location of her discomfort TRAVEL OUTSIDE OF THE [place] IN LAST 30 DAYS: No - Related Data Allergies/Adverse Reactions: No Known Allergies Allergy (Verified 07/09/19 15:52) Past Medical History - Social History Smoking Status: Current Every Day Smoker Frequency of alcohol use: None Drug Abuse: Marijuana Family History: CAD, DM, Thyroid Disfunction, Other Patient has homicidal ideation: No - Past Medical History Cardiac Medical History: Reports: Hx Hypercholesterolemia, Hx Hypertension Denies: Hx Congestive Heart Failure, Hx Coronary Artery Disease, Hx DVT, Hx Pulmonary Embolism Pulmonary Medical History: Reports: Hx Bronchitis, Hx COPD Neurological Medical History: Reports: Hx Migraine, Hx Seizures Endocrine Medical History: Denies: Hx Diabetes Mellitus Type 1, Hx Diabetes Mellitus Type 2, Hx Hyperthyroidism, Hx Hypothyroidism Renal/ Medical History: Denies: Hx Peritoneal Dialysis GI Medical History: Reports: Hx Gastroesophageal Reflux Disease. Denies: Hx Cirrhosis, Hx Hepatitis Musculoskeletal Medical History: Reports Hx Arthritis Psychiatric Medical History: Reports: Hx Depression Infectious Medical History: Denies: Hx Hepatitis Past Surgical History: Reports: Hx Hysterectomy, Hx Orthopedic Surgery - Left ankle fusion., Hx Vascular Surgery - Right carotid artery stent, 2011. Coiling of intracerebral aneurysm, 2011., Other - Colonoscopy in the . - Immunizations Immunizations up to date: No Hx Diphtheria, Pertussis, Tetanus Vaccination: No Physical Exam - Vital signs Vitals: Temp Pulse Resp BP Pulse Ox 98.3 F 67 16 160/88 H 96 07/09/19 15:38 07/09/19 15:38 07/09/19 15:38 07/09/19 15:38 07/09/19 15:38 Course - Re-evaluation Re-evalutation: 07/09/19 19:15 Patient's lab work does not show acute emergent abnormalities. Her CT imaging does not show acute emergent abnormalities. She is likely moderately constipated. Will give magnesium citrate in the emergency department. Patient may take MiraLAX consistently and will refer patient to gastroenterology given her chronic constipation issues. Given her complaint of loss of taste we have sent COVID testing - Vital Signs Vital signs: Temp Pulse Resp BP Pulse Ox 98.3 F 67 16 160/88 H 96 07/09/19 15:53 07/09/19 15:38 07/09/19 15:38 07/09/19 15:38 07/09/19 15:38 - Laboratory Result Diagrams: 07/09/19 17:10 07/09/19 17:10 Laboratory results interpreted by me: 07/09/19 07/09/19 07/09/19 17:10 17:10 18:50 WBC 12.1 H Hgb 11.2 L Hct 35.0 L MCH 26.7 L MCHC 31.9 L RDW 15.4 H Calcium 10.3 H Urine Ascorbic Acid 20 H Discharge - Discharge Clinical Impression: Abdominal pain, right upper quadrant, Constipation, chronic, Person under in vestigation for COVID-19 Condition: Stable Disposition: HOME, SELF-CARE Additional Instructions: Your lab work and imaging studies today did not show acute emergent findings. The imaging studies do suggest moderate to severe constipation as this is likely causing her pain today. It is imperative that you follow-up both with your primary care provider and gastroenterology for further evaluation and management. Take the magnesium citrate as instructed to help clear the colon. Take Bentyl for spasm. We did obtain COVID testing on you today given your complaint of loss of taste you should consider yourself a person under investigation and self quarantine at home for 14 days or until you have a negative test result Prescriptions: Dicyclomine HCl [Bentyl 20 mg Tablet] 20 mg PO Q6H PRN #20 tablet PRN Reason: Referrals: NAJMA ALONZO FNP-C [COMMUNITY BASED STAFF] - Follow up as needed MAUREEN KING MD [ACTIVE STAFF] - Follow up as needed
[2019-07-09 17:22] LABS: ABSOLUTE BASOPHILS # (AUTO) 0.1 10^3/uL (0.0-0.2); ABSOLUTE EOSINOPHILS # (AUTO) 0.2 10^3/uL (0.0-0.6); ABSOLUTE LYMPHOCYTES (AUTO) 3.9 10^3/uL (0.5-4.7); ABSOLUTE MONOCYTES (AUTO) 0.8 10^3/uL (0.1-1.4); ABSOLUTE NEUT (AUTO) 7.1 10^3/uL (1.7-8.2); BASOPHILS % (AUTO) 1.2 % (0-2); EOSINOPHILS % (AUTO) 1.5 % (0-6); HEMOGLOBIN 11.2 g/dL (12.0-15.5); LYMPHOCYTES % (AUTO) 31.9 % (13-45); MEAN CORPUSCULAR HEMOGLOBIN 26.7 pg (27.0-33.4); MEAN CORPUSCULAR HGB CONC 31.9 g/dL (32.0-36.0); MEAN CORPUSCULAR VOLUME 84 fl (80-97); MONOCYTES % (AUTO) 6.5 % (3-13); PLATELET COUNT 376 10^3/uL (150-450); RED BLOOD COUNT 4.18 10^6/uL (3.72-5.28); RED CELL DISTRIBUTION WIDTH 15.4 % (11.5-14.0); SEGMENTED NEUTROPHILS % (AUTO) 58.9 % (42-78); TOTAL CELLS COUNTED % (AUTO) 100 %; WHITE BLOOD COUNT 12.1 10^3/uL (4.0-10.5)
[2019-07-09 17:41] LABS: ALBUMIN 4.6 g/dL (3.5-5.0); ALKALINE PHOSPHATASE 84 U/L (38-126); ANION GAP 9 (5-19); ASPARTATE AMINO TRANSFERASE 29 U/L (14-36); BILIRUBIN,TOTAL 0.3 mg/dL (0.2-1.3); BLOOD UREA NITROGEN 20 mg/dL (7-20); CALCIUM 10.3 mg/dL (8.4-10.2); CARBON DIOXIDE 27 mmol/L (22-30); CHLORIDE 104 mmol/L (98-107); GLUCOSE 88 mg/dL (75-110); POTASSIUM 4.2 mmol/L (3.6-5.0); TOTAL PROTEIN 8.1 g/dL (6.3-8.2)
[2019-07-09 19:06] LABS: APPEARANCE,URINE SLIGHTLY-CLOUDY; BILIRUBIN,URINE NEGATIVE (NEGATIVE); COLOR,URINE YELLOW; GLUCOSE, URINE NEGATIVE (NEGATIVE); KETONES,URINE NEGATIVE (NEGATIVE); LEUKOCYTE ESTERASE,URINE NEGATIVE (NEGATIVE); NITRITE,URINE NEGATIVE (NEGATIVE); PROTEIN,URINE NEGATIVE (NEGATIVE); URINE SPECIFIC GRAVITY 1.043; UROBILINOGEN,URINE NEGATIVE mg/dL (<2.0)
--- NOTE | 2019-07-09 19:13 | RADIOLOGY REPORT (SQ) ---
EXAM DESCRIPTION: CT ABD/PELVIS WITH IV ONLY IMAGES COMPLETED DATE/TIME: 07/09/2019 6:53 pm REASON FOR STUDY: upper abd pain COMPARISON: 07/09/2015 TECHNIQUE: CT scan of the abdomen and pelvis performed using helical scanning technique with dynamic intravenous contrast injection. No oral contrast. Images reviewed with lung, soft tissue, and bone windows. Reconstructed coronal and sagittal MPR images reviewed. Delayed images for evaluation of the urinary system also acquired. All images stored on PACS. All CT scanners at this facility use dose modulation, iterative reconstruction, and/or weight based d osing when appropriate to reduce radiation dose to as low as reasonably achievable (ALARA). [facility]: Dose Right [facility]: CareDose [facility]: Dose Right [facility]: Teradose 4D [facility]: KineMed CONTRAST TYPE AND DOSE: contrast/concentration: Isovue 350.00 mg/ml; Total Contrast Delivered: 100.0 ml; Total Saline Delivered: 30.7 ml RENAL FUNCTION: BUN 20 creatinine 0.89 RADIATION DOSE: CT Rad equipment meets quality standard of care and radiation dose reduction techniq ues were employed. CTDIvol: 18.5 - 20.7 mGy. DLP: 1965 mGy-cm.. LIMITATIONS: None. FINDINGS: LOWER CHEST: No significant findings. No nodules or infiltrates. LIVER: Normal size. No masses. No dilated ducts. SPLEEN: The spleen is somewhat small in contains heterogeneous calcifications. . These were seen on the study from 2016 but have increased. PANCREAS: No masses. No significant calcifications. No adjacent inflammation or peripancreatic fluid collections. Pancreatic duct not dilated. GALLBLADDER: No identified stones by CT criteria. No inflammatory changes to suggest cholecystitis. ADRENAL GLANDS: No significant masses or asymmetry. RIGHT KIDNEY AND URETER: No solid masses. No significant calcifications. No hydronephrosis or hyd roureter. LEFT KIDNEY AND URETER: No solid masses. No significant calcifications. No hydronephrosis or hydr oureter. AORTA AND VESSELS: No aneurysm. No dissection. Renal arteries, SMA, celiac without stenosis. RETROPERITONEUM: No retroperitoneal adenopathy, hemorrhage or masses. BOWEL AND PERITONEAL CAVITY: No masses or inflammatory changes. No free fluid or peritoneal masses. APPENDIX: Not identified. PELVIS: No mass. No free fluid. Normal bladder. ABDOMINAL WALL: No masses. No hernias. BONES: No significant or acute findings. OTHER: No other significant finding. IMPRESSION: Apparent prior splenic injury. There is no acute finding in the abdomen or pelvis at th is time. TECHNICAL DOCUMENTATION: JOB ID: [id number] Quality ID # [id number]: Final reports with documentation of one or more dose reduction techniques (e.g., Au tomated exposure control, adjustment of the mA and/or kV according to patient size, use of iterative reconstruction technique) 2010 [employer]- All Rights Reserved Reading location - IP/workstation name: [email or web address]
[2019-07-09] MEDS ORDERED: MAGNESIUM CITRATE 296 ML BOTTLE PO ONE (19:15)
[2019-07-09] MEDS ORDERED: ACETAMINOPHEN 325 MG TABLET PO ONE (19:18)
[2019-07-09 19:39] VITALS: BP 188/89
--- NOTE | 2019-07-09 23:33 | EKG REPORT ---
SEVERITY:- NORMAL ECG - SINUS RHYTHM : Confirmed by: Rhonda Car 09-Jul-2019 23:32:43
== END 2019-07-09 19:55 | disposition home or self-care (01) ==
LOC: ER 15:31
DX: K59.09 Other constipation (principal); R10.11 Right upper quadrant pain; R10.9 Unspecified abdominal pain; R43.9 Unspecified disturbances of smell and taste; F17.200 Nicotine dependence, unspecified, uncomplicated; I10 Essential (primary) hypertension; J44.9 Chronic obstructive pulmonary disease, unspecified; Z20.828 Contact with and (suspected) exposure to other viral communicable diseases
CPT/HCPCS: 93005; 99284; 96372; 36415; 83690; 84443; 85025; 80053; 81001; 84484; 74018; 74177; 93010; U0003; A9270 ×2; J0500; C9803; 87635; J3490

== ENCOUNTER 2020-01-01 13:18 | Observation (INO) | payer MEDICARE, MEDICAID ==
[2020-01-01] MEDS ORDERED: IPRATROPIUM/ALBUTEROL 0.5-2.5 MG/3 ML AMPUL NEB ONE (13:35)
--- NOTE | 2020-01-01 13:37 | ER Document Report ---
ED Medical Screen (RME) - General Chief Complaint: Abnormal Lab Results Stated Complaint: FEELING LIGHTHEADED Time Seen by Provider: 01/01/20 13:28 Primary Care Provider: DONNA THOMPSON MD [Primary Care Provider] - Follow up as needed Information source: Patient Notes: Patient had outpatient lab work performed yesterday. Patient received a call from her doctor today Dr. Bear stating that she needed to come to the hospital for blood transfusion as she was severely anemic. Patient does report some lightheadedness. Patient also reports chronic low back pain. Patient denies any recent injuries. Patient denies any active bleeding. Patient denies any blood in stool. Patient denies any chest pain or shortness of breath. Patient does have a history of COPD, anemia, hypertension, RSD, hysterectomy, previous aneurysm coiling procedure, cervical cancer. I have greeted and performed a rapid initial assessment of this patient. A comprehensive ED assessment and evaluation of the patient, analysis of test results and completion of the medical decision making process will be conducted by additional ED providers. TRAVEL OUTSIDE OF THE [place] IN LAST 30 DAYS: No - Related Data Allergies/Adverse Reactions: No Known Allergies Allergy (Verified 07/09/19 15:52) Past Medical History - Social History Chew tobacco use (# tins/day): No Frequency of alcohol use: None Drug Abuse: None - Past Medical History Cardiac Medical History: Reports: Hx Hypercholesterolemia, Hx Hypertension Denies: Hx Congestive Heart Failure, Hx Coronary Artery Disease, Hx DVT, Hx Pulmonary Embolism Pulmonary Medical History: Reports: Hx Bronchitis, Hx COPD Neurological Medical History: Reports: Hx Migraine, Hx Seizures Endocrine Medical History: Denies: Hx Diabetes Mellitus Type 1, Hx Diabetes Mellitus Type 2, Hx Hyperthyroidism, Hx Hypothyroidism Renal/ Medical History: Denies: Hx Peritoneal Dialysis GI Medical History: Reports: Hx Gastroesophageal Reflux Disease. Denies: Hx Cirrhosis, Hx Hepatitis Musculoskeltal Medical History: Reports Hx Arthritis Psychiatric Medical History: Reports: Hx Depression Infectious Medical History: Denies: Hx Hepatitis Past Surgical History: Reports: Hx Hysterectomy, Hx Orthopedic Surgery - Left ankle fusion., Hx Vascular Surgery - Right carotid artery stent, 2011. Coiling of intracerebral aneurysm, 2011., Other - Colonoscopy in the . - Immunizations Immunizations up to date: No Hx Diphtheria, Pertussis, Tetanus Vaccination: No Physical Exam - Vital signs Vitals: Temp Pulse Resp BP Pulse Ox 97.8 F 60 18 136/69 H 99 01/01/20 13:27 01/01/20 13:27 01/01/20 13:27 01/01/20 13:27 01/01/20 13:27 - Respiratory Respiratory status: No respiratory distress Breath sounds: Nonproductive cough, Wheezing - Cardiovascular Rhythm: Regular Heart sounds: S1 appreciated, S2 appreciated Course - Vital Signs Vital signs: Temp Pulse Resp BP Pulse Ox 97.8 F 60 18 136/69 H 99 01/01/20 13:27 01/01/20 13:27 01/01/20 13:27 01/01/20 13:27 01/01/20 13:27 Doctor's Discharge - Discharge Referrals: DONNA THOMPSON MD [Primary Care Provider] - Follow up as needed
--- NOTE | 2020-01-01 14:15 | RADIOLOGY REPORT (SQ) ---
EXAM DESCRIPTION: CHEST SINGLE VIEW IMAGES COMPLETED DATE/TIME: 01/01/2020 12:56 pm REASON FOR STUDY: light headed, wheezing. COMPARISON: Chest radiograph, 12/20/2016. EXAM PARAMETERS: NUMBER OF VIEWS: One view. TECHNIQUE: Single frontal radiographic view of the chest acquired. RADIATION DOSE: NA LIMITATIONS: None. FINDINGS: LUNGS AND PLEURA: No opacities, masses or pneumothorax. No pleural effusion. MEDIASTINUM AND HILAR STRUCTURES: No masses. Contour normal. HEART AND VASCULAR STRUCTURES: Heart normal in size. Normal vasculature. BONES: No acute findings. HARDWARE: Right MediPort catheter with tip extending into the right internal jugular vein is unchange d since 2016. OTHER: No other significant finding. IMPRESSION: No acute cardiopulmonary disease. Right MediPort catheter with tip extending into the r ight internal jugular vein unchanged from prior. TECHNICAL DOCUMENTATION: JOB ID: [id number] 2010 [employer]- All Rights Reserved Reading location - IP/workstation name: [email or web address]
[2020-01-01 14:30] LABS: HEMATOCRIT 21.3 % (36.0-47.0); MEAN CORPUSCULAR HEMOGLOBIN 19.9 pg (27.0-33.4); MEAN CORPUSCULAR HGB CONC 30.2 g/dL (32.0-36.0); MEAN CORPUSCULAR VOLUME 66 fl (80-97); PLATELET COUNT 412 10^3/uL (150-450); RED BLOOD COUNT 3.22 10^6/uL (3.72-5.28); RED CELL DISTRIBUTION WIDTH 21.7 % (11.5-14.0); WHITE BLOOD COUNT 10.7 10^3/uL (4.0-10.5)
[2020-01-01 14:44] LABS: ALBUMIN 3.7 g/dL (3.5-5.0); ALKALINE PHOSPHATASE 79 U/L (38-126); ANION GAP 6 (5-19); ASPARTATE AMINO TRANSFERASE 29 U/L (14-36); BILIRUBIN,DIRECT 0.1 mg/dL (0.0-0.4); BILIRUBIN,TOTAL 0.2 mg/dL (0.2-1.3); BLOOD UREA NITROGEN 12 mg/dL (7-20); CALCIUM 9.4 mg/dL (8.4-10.2); CARBON DIOXIDE 27 mmol/L (22-30); CHLORIDE 105 mmol/L (98-107); GLUCOSE 89 mg/dL (75-110); POTASSIUM 4.2 mmol/L (3.6-5.0); TOTAL PROTEIN 6.8 g/dL (6.3-8.2)
[2020-01-01 14:50] LABS: HEMOGLOBIN 6.4 g/dL (12.0-15.5)
[2020-01-01 14:52] LABS: ABSOLUTE LYMPHOCYTES# (MANUAL) 3.6 10^3/uL (0.5-4.7); ABSOLUTE MONOCYTES # (MANUAL) 0.5 10^3/uL (0.1-1.4); BASOPHILS % (MANUAL) 0 % (0-2); EOSINOPHILS % (MANUAL) 3 % (0-6); LYMPHOCYTES % (MANUAL) 33 % (13-45); MONOCYTES % (MANUAL) 5 % (3-13); SEGMENTED NEUTROPHILS % (MAN) 58 % (42-78); TOTAL CELLS COUNTED 100
[2020-01-01 14:55] LABS: ANISOCYTOSIS 3+; HYPOCHROMASIA 2+; POIKILOCYTOSIS 2+; POLYCHROMASIA 1+; SMUDGE CELLS PRESENT
[2020-01-01 14:56] LABS: HOWELL-JOLLY BODIES PRESENT; OVALOCYTES SLIGHT; PLATELET COMMENT ADEQUATE; PLATELET LARGE PRESENT; SCHISTOCYTES 1+; TARGET CELLS 1+; TEAR DROP CELLS SLIGHT
[2020-01-01] MEDS ORDERED: OXYCODONE-ACETAMINOPHEN 5-325 MG TABLET PO ONE (15:55)
[2020-01-01 16:06] LABS: ABSOLUTE RETICS # 0.081 10^6/uL (0.028-0.122); RETICULOCYTE COUNT (AUTO) 2.55 % (0.66-2.85)
--- NOTE | 2020-01-01 16:37 | ER Document Report ---
ED General - General Chief Complaint: Abnormal Lab Results Stated Complaint: FEELING LIGHTHEADED Time Seen by Provider: 01/01/20 13:28 Primary Care Provider: DONNA THOMPSON MD [ACTIVE STAFF] - Follow up as needed Notes: 64-year-old female history of chronic anemia for several years with no known diagnosis previously followed by oncologist, COPD, hypertension, hyperlipidemia, seizures, cerebral aneurysm post coiling presents with approximately several months of gradual onset gradually worsening generalized weakness with a feeling of being lightheaded and not having energy to do activities over the past few we eks. Patient had lab work done by Dr. Bear that showed anemia with hemoglobin of 6 and was referred to the ED. Patient has had numerous investigations into her anemia and has had to have several transfusions in the past but is unaware of any diagnosis she has received. Says that she had a co lonoscopy last week without any bleeding that was a screening colonoscopy which found 2 polyps, she has had numerous fecal occult blood test that was been negative as per patient. Patient denies chest pain which apparently was torsed to nurse previously, says that she has over the last few days had some sneezing which is felt like it has triggered her COPD but has resolved when she is taken her albuterol inhaler. Has only used albuterol inhaler few times. Patient denies any chest pain, exertional chest pain, pleuritic chest pain, lower extremity edema, cough, fever, cardiac history, abdominal pain, vomiting, diarrhea, black stool, bloody stool, syncope, anticoagulation. Patient also complains of chronic lower back pain which she has had for decades since suffering an accident after which she she had a bone graft from her femur to her ankle and has had chronic back pain from the height difference which has not acutely changed recently. Patient denies any trauma, weakness, numbness, urinary retention, bowel incontinence, saddle anesthesia, recent procedures, change in gait, drug use (endorses therapeutic CBD for back pain) TRAVEL OUTSIDE OF THE [place] IN LAST 30 DAYS: No - Related Data Allergies/Adverse Reactions: No Known Allergies Allergy (Verified 01/01/20 13:39) Past Medical History - General Information source: Patient, [facility] Records - Social History Smoking Status: Current Every Day Smoker Chew tobacco use (# tins/day): No Frequency of alcohol use: None Drug Abuse: None Family History: CAD, DM, Thyroid Disfunction, Other - Past Medical History Cardiac Medical History: Reports: Hx Hypercholesterolemia, Hx Hypertension Denies: Hx Congestive Heart Failure, Hx Coronary Artery Disease, Hx DVT, Hx Pulmonary Embolism Pulmonary Medical History: Reports: Hx Bronchitis, Hx COPD Neurological Medical History: Reports: Hx Migraine, Hx Seizures Endocrine Medical History: Denies: Hx Diabetes Mellitus Type 1, Hx Diabetes Mellitus Type 2, Hx Hyperthyroidism, Hx Hypothyroidism Renal/ Medical History: Denies: Hx Peritoneal Dialysis GI Medical History: Reports: Hx Gastroesophageal Reflux Disease. Denies: Hx Cirrhosis, Hx Hepatitis Musculoskeletal Medical History: Reports Hx Arthritis Psychiatric Medical History: Reports: Hx Depression Infectious Medical History: Denies: Hx Hepatitis Past Surgical History: Reports: Hx Hysterectomy, Hx Orthopedic Surgery - Left ankle fusion., Hx Vascular Surgery - Right carotid artery stent, 2011. Coiling of intracerebral aneurysm, 2011., Other - Colonoscopy in the . - Immunizations Immunizations up to date: No Hx Diphtheria, Pertussis, Tetanus Vaccination: No Review of Systems - Review of Systems Notes: REVIEW OF SYSTEMS: CONSTITUTIONAL : Denies fever, chills, or sweats. EENT: Denies recent cold/sinus symptoms, denies throat pain CARDIOVASCULAR: Denies chest pain, STEFANIE RESPIRATORY: Denies cough, +shortness of breath. GASTROINTESTINAL: Denies abdominal pain, nausea/vomiting. GENITOURINARY: Denies difficulty urinating, painful urination. FEMALE GENITOURINARY: Denies abnormal vaginal bleeding, vaginal discharge. MUSCULOSKELETAL: Denies neck pain, +back pain. SKIN: Denies rash or skin lesions. HEMATOLOGIC : Denies easy bruising or bleeding. LYMPHATIC: Denies swollen, enlarged glands. NEUROLOGICAL: Denies headache, denies change in gait. PSYCHIATRIC: Denies anxiety or stress or depression. Physical Exam - Vital signs Vitals: Temp Pulse Resp BP Pulse Ox 97.8 F 60 18 136/69 H 99 01/01/20 13:27 01/01/20 13:27 01/01/20 13:27 01/01/20 13:27 01/01/20 13:27 - Notes Notes: PHYSICAL EXAMINATION: GENERAL: Uncomfortable but nontoxic-appearing middle-aged woman lying in stretcher in no acute distress HEAD: Atraumatic, normocephalic. EYES: Pupils equal round and appropriate constriction, sclera anicteric, conjunctiva are normal. ENT: nares patent, moist mucous membranes. NECK: Normal range of motion, supple without lymphadenopathy LUNGS: Breath sounds clear to auscultation bilaterally and equal. No wheezes rales or rhonchi. HEART/CHEST: Regular rate and rhythm without murmurs, rubs, or gallops, normal right chest Mediport ABDOMEN: Soft, nontender, no guarding, no masses, no CVAT EXTREMITIES/back: Normal range of motion, no pitting or edema. No cyanosis. No midline spinal tenderness or deformity NEUROLOGICAL: Awake, alert, conversing appropriately, moves all extremities spontaneously. Bilateral lower extremity strength 5 out of 5, normal sensation bilaterally, normal DTRs, able to straight leg raise bilaterally PSYCH: Normal mood, normal affect. SKIN: Warm, Dry, normal turgor, no rashes or lesions noted. Course - Re-evaluation Re-evalutation: 01/01/20 16:50 Patient presenting with chronically worsening generalized fatigue and lightheadedness also mild shortness of breath initially that has completely resolved after she was given DuoNeb in ED. Normal respiratory exam at time of my evaluation. Patient symptoms consistent with usual mild COPD exacerbation. No current indication for steroids or PE rule out. Very unlikely atypical ACS presentation, but obtain troponin and EKG for rule out which were normal. No signs of COVID-19 or flu. Likely precipitated by environmental allergies given patient's reports of sneezing "fits". Patient with chronic anemia now worsened and requiring transfusion with unknown diagnosis, but has no GI symptoms, no signs of GI bleed, and has had recent previous investigation of GI source. Will obtain basic anemia work-up labs, and admit to observation for transfusion of PRBCs. Discussed plan with Dr. [facility] - Vital Signs Vital signs: Temp Pulse Resp BP Pulse Ox 97.8 F 60 41 H 136/69 H 99 01/01/20 13:27 01/01/20 13:27 01/01/20 14:00 01/01/20 13:27 01/01/20 14:00 - Laboratory Result Diagrams: 01/01/20 13:55 01/01/20 13:55 Laboratory results interpreted by me: 01/01/20 13:55 WBC 10.7 H RBC 3.22 L Hgb 6.4 L Hct 21.3 L MCV 66 L MCH 19.9 L MCHC 30.2 L RDW 21.7 H - EKG Interpretation by Me Additional EKG results interpreted by me: 01/01/20 16:52 Sinus rhythm, no significant ST elevations or depressions, no significant T wave abnormalities Discharge - Discharge Clinical Impression: Anemia Qualifiers: Anemia type: unspecified type Qualified Code(s): D64.9 - Anemia, unspecified Chronic bronchitis Qualifiers: Chronic bronchitis type: unspecified Qualified Code(s): J42 - Unspecified ch ronic bronchitis HTN (hypertension) Qualifiers: Hypertension type: unspecified Qualified Code(s): I10 - Essential (primary) hypertension Disposition: ADMITTED OBSERVATION [facility] Medical [facility] Referrals: DONNA THOMPSON MD [ACTIVE STAFF] - Follow up as needed
[2020-01-01 16:44] LABS: FERRITIN 8.64 ng/mL (11.1-264.0)
[2020-01-01 17:15] LABS: FOLATE > 20.00 ng/mL (>2.76); IRON(TIBC) < 10.1 ug/dL (37-170)
--- NOTE | 2020-01-01 18:12 | EKG REPORT ---
SEVERITY:- ABNORMAL ECG - SINUS RHYTHM CONSIDER OLD ANTEROSEPTAL [place] : Confirmed by: Nilesh Rogel MD 01-Jan-2020 18:11:25
[2020-01-01] MEDS ORDERED: FERRIC CARBOXYMALTOSE INJ 750 MG/15 ML VIAL IV PRN (18:45)
--- NOTE | 2020-01-01 18:52 | PDOC H&P ---
History of Present Illness Admission Date/PCP: 01/01/20 16:55 SYDNEE FLORES MD History of Present Illness: BRITTANI RAMOS is a 64 year old female, She came to the office for the first time as a new patient evaluation on 11/01/2019, I saw her in the office yesterday, she complained of shortness of breath, she has history of COPD, still actively smoking because of her symptoms and the fact that she was pale on examination I felt she needed to have hemogram done, the laboratory called me today that the hemoglobin was 6, I called the patient to go to emergency room because she will need to be admitted to the hospital.She has severe iron deficiency anemia, the iron indices were low, she told me yesterday that she recently had a colonoscopy about few days ago. She is very symptomatic with shortness of breath, extreme fatigue. On direct questioning she stated that this has been ongoing for a while suggesting to me that she probably not absorbing iron from the GI tract, she will be transfused with iron, Injectafer, she will receive the first dose on this admission, she will receive the second dose 7 days from the first dose was infused. She denies any passage of black tarry stool. . Past Medical History Cardiac Medical History: Reports: Hyperlipidema, Hypertension Pulmonary Medical History: Reports: Bronchitis, Chronic Obstructive Pulmonary Disease (COPD) Neurological Medical History: Reports: Migraine, Seizures GI Medical History: Reports: Gastroesophageal Reflux Disease Musculoskeltal Medical History: Reports: Arthritis Psychiatric Medical History: Reports: Depression Hematology: Reports: Anemia Past Surgical History Past Surgical History: Reports: Hysterectomy, Orthopedic Surgery - Left ankle fusion., Vascular Surgery - Right carotid artery stent, 2011. Coiling of intracerebral aneurysm, 2011., Other - Colonoscopy in the . Social History Smoking Status: Current Every Day Smoker Electronic Cigarette use?: No Frequency of Alcohol Use: None Hx Recreational Drug Use: Yes Drugs: None Hx Prescription Drug Abuse: No - Advance Directive Resuscitation Status: Full Code Family History Family History: CAD, DM, Thyroid Disfunction, Other Parental Family History Reviewed: Yes Children Family History Reviewed: Yes Sibling(s) Family History Reviewed.: Yes Medication/Allergy Home Medications: Atorvastatin Calcium 40 mg PO QHS 01/22/16 Duloxetine HCl 30 mg PO DAILY 01/22/16 Lisinopril 10 mg PO DAILY 01/22/16 Metoprolol Succinate 25 mg PO DAILY 01/22/16 Acetaminophen [Tylenol 325 mg Tablet] 650 mg PO Q4HP PRN tablet 01/24/16 Omeprazole 20 mg PO DAILY #30 capsule. 01/24/16 Lisinopril 10 mg PO DAILY #30 tablet 08/01/16 Metoprolol Tartrate 25 mg PO DAILY #30 tablet 08/01/16 Benzonatate [Tessalon Perle 100 mg Capsule] 100 mg PO Q8HP PRN #40 cap 12/20/16 Cefdinir 300 mg PO BID #14 capsule 12/20/16 Naproxen 500 mg PO BID 7 Days #14 tablet 02/06/17 Dicyclomine HCl [Bentyl 20 mg Tablet] 20 mg PO Q6H PRN #20 tablet 07/09/19 Allergies/Adverse Reactions: No Known Allergies Allergy (Verified 01/01/20 13:39) Review of Systems Constitutional: PRESENT: fatigue. ABSENT: chills, fever(s), headache(s), weight gain, weight loss Eyes: ABSENT: visual disturbances Ears: ABSENT: hearing changes Cardiovascular: PRESENT: dyspnea on exertion Respiratory: ABSENT: cough, hemoptysis Gastrointestinal: ABSENT: abdominal pain, constipation, diarrhea, hematemesis, hematochezia, nausea, vomiting Genitourinary: ABSENT: dysuria, hematuria Musculoskeletal: ABSENT: joint swelling Integumentary: ABSENT: rash, wounds Neurological: ABSENT: abnormal gait, abnormal speech, confusion, dizziness, focal weakness, syncope Psychiatric: ABSENT: anxiety, depression, homidical ideation, suicidal ideation Endocrine: ABSENT: cold intolerance, heat intolerance, menstrual abnormalities, polydipsia, polyuria Hematologic/Lymphatic: ABSENT: easy bleeding, easy bruising, lymphadenopathy Physical Exam Vital Signs: Temp Pulse Resp BP Pulse Ox 97.8 F 60 41 H 136/69 H 99 01/01/20 13:27 01/01/20 13:27 01/01/20 14:00 01/01/20 13:27 01/01/20 14:00 Intake & Output 12/31/19 01/01/20 01/02/20 06:59 06:59 06:59 Weight 115.8 kg General appearance: PRESENT: no acute distress Head exam: PRESENT: atraumatic, normocephalic Eye exam: PRESENT: conjunctiva pink, conjunctiva pale, EOMI, PERRLA Ear exam: PRESENT: normal external ear exam Mouth exam: PRESENT: moist, tongue midline Neck exam: PRESENT: full ROM Respiratory exam: PRESENT: clear to auscultation dana Cardiovascular exam: PRESENT: RRR, +S1, +S2 Pulses: PRESENT: normal dorsalis pedis pul, +2 pedal pulses bilateral Vascular exam: PRESENT: normal capillary refill GI/Abdominal exam: PRESENT: normal bowel sounds, soft Rectal exam: PRESENT: deferred Neurological exam: PRESENT: alert, awake, oriented to person, oriented to place, oriented to time, oriented to situation, CN II-XII grossly intact Psychiatric exam: PRESENT: appropriate affect, normal mood Skin exam: PRESENT: dry, intact, warm Results Laboratory Results: 01/01/20 13:55 01/01/20 13:55 01/01/20 01/01/20 01/01/20 13:55 13:55 13:55 WBC 10.7 H RBC 3.22 L Hgb 6.4 L Hct 21.3 L MCV 66 L MCH 19.9 L MCHC 30.2 L RDW 21.7 H Plt Count 412 Seg Neutrophils % Not Reportable Retic Count (auto) Sodium 138.2 Potassium 4.2 Chloride 105 Carbon Dioxide 27 Anion Gap 6 BUN 12 Creatinine 0.75 Est GFR ( Amer) > 60 Glucose 89 Calcium 9.4 Iron TIBC Ferritin Total Bilirubin 0.2 AST 29 Alkaline Phosphatase 79 Total Protein 6.8 Albumin 3.7 Vitamin B12 Folate Blood Type B POSITIVE Antibody Screen NEGATIVE 01/01/20 01/01/20 13:55 13:55 WBC RBC Hgb Hct MCV MCH MCHC RDW Plt Count Seg Neutrophils % Retic Count (auto) 2.55 Sodium Potassium Chloride Carbon Dioxide Anion Gap BUN Creatinine Est GFR ( Amer) Glucose Calcium Iron < 10.1 L TIBC 448 Ferritin 8.64 L Total Bilirubin AST Alkaline Phosphatase Total Protein Albumin Vitamin B12 977.0 H Folate > 20.00 Blood Type Antibody Screen Impressions: Chest X-Ray 01/01/20 13:35 IMPRESSION: No acute cardiopulmonary disease. Right MediPort catheter with tip extending into the right internal jugular vein unchanged from prior. Assessment & Plan - Diagnosis (1) Iron deficiency anemia due to chronic blood loss Is this a current diagnosis for this admission?: Yes Plan: Patient is admitted to the hospital for management she be transfused with red blood cells she also received Injectafer to restore iron storage, she will receive 2 doses 7 days apart. Consultation will be requested from surgicalist for upper endoscopy. She may need to have outpatient capsule endoscopy (2) Chronic obstructive pulmonary disease (COPD) Qualifiers: COPD type: unspecified COPD Qualified Code(s): J44.9 - Chronic obstructive pulmonary disease, unspecified Is this a current diagnosis for this admission?: Yes - Time Time Spent: Greater than 70 Minutes Smoking Cessation Education: 3 to 10 minutes Anticipated Discharge Disposition: Home, Self Care Anticipated Discharge Timeframe: within 48 hours
[2020-01-01] MEDS ORDERED: FERRIC CARBOXYMALTOSE 750 MG in NORMAL SALINE 250 ML IV SCH (19:15)
[2020-01-01] MEDS: FLUTICASONE/UMECLIDIN/VILANTER 100-62.5-25 MCG/DOSE IH SCH (20:14)
[2020-01-01] MEDS ORDERED: NORMAL SALINE 250 ML IV PRN ×2 (22:02)
[2020-01-01] MEDS: IPRATROPIUM/ALBUTEROL 0.5-2.5 MG/3 ML AMPUL NEB PRN (22:32)
[2020-01-01] MEDS ORDERED: PRAMIPEXOLE DI-HCL 0.25 MG TABLET ONE (23:01)
[2020-01-01] MEDS: PRAMIPEXOLE DI-HCL 0.25 MG TABLET PO SCH (23:27)
--- NOTE | 2020-01-02 02:00 | PDOC CONSULTATION ---
Consultation Consult Date: 01/02/20 Provider Consulted: JANE AYALA Consult reason:: Anemia of unknown cause History of Present Illness Admission Date/PCP: 01/01/20 16:55 SYDNEE FLORES MD History of Present Illness: BRITTANI RAMOS is a 64 year old female, obese, with history of COPD, tobacco abuse, hypertension, who presented today physician's office complaining of shortness of breath. His CBC done today reveals an H&H of 6.4 21.3, respectively. She was admitted for transfusion and further evaluation. The patient stated to have recent colonoscopy few days ago which was negative. She denies gastric or abdominal pain, nausea, vomiting, change in bowel habits, hematochezia, hematemesis, weight loss. Past Medical History Cardiac Medical History: Reports: Hyperlipidema, Hypertension Denies: Congestive Heart Failure, Coronary Artery Disease, DVT, Pulmonary Embolism Pulmonary Medical History: Reports: Bronchitis, Chronic Obstructive Pulmonary Disease (COPD) Neurological Medical History: Reports: Migraine, Seizures Endocrine Medical History: Denies: Diabetes Mellitus Type 1, Diabetes Mellitus Type 2, Hyperthyroidism, Hypothyroidism GI Medical History: Reports: Gastroesophageal Reflux Disease Denies: Cirrhosis, Hepatitis Musculoskeltal Medical History: Reports: Arthritis Psychiatric Medical History: Reports: Depression Hematology: Reports: Anemia Past Surgical History Past Surgical History: Reports: Hysterectomy, Orthopedic Surgery - Left ankle fusion., Vascular Surgery - Right carotid artery stent, 2011. Coiling of intracerebral aneurysm, 2011., Other - Colonoscopy in the . Social History Smoking Status: Current Every Day Smoker Electronic Cigarette use?: No Frequency of Alcohol Use: None Hx Recreational Drug Use: Yes Drugs: None Hx Prescription Drug Abuse: No - Advance Directive Resuscitation Status: Full Code Family History Family History: CAD, DM, Thyroid Disfunction, Other Parental Family History Reviewed: No Children Family History Reviewed: No Sibling(s) Family History Reviewed.: No Medication/Allergy Home Medications: Atorvastatin Calcium 40 mg PO QHS 01/22/16 Duloxetine HCl 30 mg PO DAILY 01/22/16 Lisinopril 10 mg PO DAILY 01/22/16 Metoprolol Succinate 25 mg PO DAILY 01/22/16 Acetaminophen [Tylenol 325 mg Tablet] 650 mg PO Q4HP PRN tablet 01/24/16 Omeprazole 20 mg PO DAILY #30 capsule. 01/24/16 Lisinopril 10 mg PO DAILY #30 tablet 08/01/16 Metoprolol Tartrate 25 mg PO DAILY #30 tablet 08/01/16 Benzonatate [Tessalon Perle 100 mg Capsule] 100 mg PO Q8HP PRN #40 cap 12/20/16 Cefdinir 300 mg PO BID #14 capsule 12/20/16 Naproxen 500 mg PO BID 7 Days #14 tablet 02/06/17 Dicyclomine HCl [Bentyl 20 mg Tablet] 20 mg PO Q6H PRN #20 tablet 07/09/19 Allergies/Adverse Reactions: No Known Allergies Allergy (Verified 01/01/20 13:39) Physical Exam Vital Signs: Temp Pulse Resp BP Pulse Ox 97.6 F 68 16 154/71 H 97 01/02/20 01:15 01/02/20 01:15 01/02/20 01:15 01/02/20 01:15 01/02/20 01:15 Intake & Output 12/31/19 01/01/20 01/02/20 06:59 06:59 06:59 Intake Total 260 Balance 260 Weight 115.8 kg General appearance: PRESENT: no acute distress, obese, well-developed, well- nourished Eye exam: PRESENT: EOMI Mouth exam: PRESENT: neck supple Teeth exam: PRESENT: edentulous Neck exam: PRESENT: full ROM Respiratory exam: PRESENT: clear to auscultation dana, wheezes Cardiovascular exam: PRESENT: RRR GI/Abdominal exam: PRESENT: soft Rectal exam: PRESENT: deferred, normal inspection Gentrourinary exam: PRESENT: other - Deferred Extremities exam: PRESENT: full ROM Musculoskeletal exam: PRESENT: full ROM Neurological exam: PRESENT: alert, awake, oriented to person, oriented to place, oriented to situation, CN II-XII grossly intact, normal gait Psychiatric exam: PRESENT: appropriate affect Skin exam: PRESENT: warm Results Laboratory Results: 01/01/20 13:55 01/01/20 13:55 01/01/20 01/01/20 01/01/20 13:55 13:55 13:55 WBC 10.7 H RBC 3.22 L Hgb 6.4 L Hct 21.3 L MCV 66 L MCH 19.9 L MCHC 30.2 L RDW 21.7 H Plt Count 412 Seg Neutrophils % Not Reportable Retic Count (auto) Sodium 138.2 Potassium 4.2 Chloride 105 Carbon Dioxide 27 Anion Gap 6 BUN 12 Creatinine 0.75 Est GFR ( Amer) > 60 Glucose 89 Calcium 9.4 Iron TIBC Ferritin Total Bilirubin 0.2 AST 29 Alkaline Phosphatase 79 Total Protein 6.8 Albumin 3.7 Vitamin B12 Folate Blood Type B POSITIVE Antibody Screen NEGATIVE 01/01/20 01/01/20 13:55 13:55 WBC RBC Hgb Hct MCV MCH MCHC RDW Plt Count Seg Neutrophils % Retic Count (auto) 2.55 Sodium Potassium Chloride Carbon Dioxide Anion Gap BUN Creatinine Est GFR ( Amer) Glucose Calcium Iron < 10.1 L TIBC 448 Ferritin 8.64 L Total Bilirubin AST Alkaline Phosphatase Total Protein Albumin Vitamin B12 977.0 H Folate > 20.00 Blood Type Antibody Screen Impressions: Chest X-Ray 01/01/20 13:35 IMPRESSION: No acute cardiopulmonary disease. Right MediPort catheter with tip extending into the right internal jugular vein unchanged from prior. Assessment & Plan - Diagnosis (1) Anemia Qualifiers: Anemia type: iron deficiency Iron deficiency anemia type: unspecified iron deficiency Qualified Code(s): D50.9 - Iron deficiency anemia, unspecified Is this a current diagnosis for this admission?: Yes (2) Iron deficiency anemia due to chronic blood loss Is this a current diagnosis for this admission?: Yes (3) Chronic bronchitis Qualifiers: Chronic bronchitis type: unspecified Qualified Code(s): J42 - Unspecified chronic bronchitis Is this a current diagnosis for this admission?: Yes (4) HTN (hypertension) Qualifiers: Hypertension type: unspecified Qualified Code(s): I10 - Essential (primary) hypertension Is this a current diagnosis for this admission?: Yes - Plan Summary Plan Summary: Assessment: 64-year-old obese Afro-[place]inamese female with shortness of breath H&H done today reveals a hemoglobin of 6.4 and hematocrit 21.3, respectively Iron level extremely low, elevated TIBC as per iron deficient anemia Normal liver profile History of COPD, Hypertension, Obesity, Restless leg syndrome Patient denies epigastric or abdominal pain, nausea / vomiting, change of bowel habits, hematochezia or hematemesis Negative recent colonoscopy Negative Hemoccult recently done Patient currently undergoing transfusion of 2 units of packed red blood cells Plan: N.p.o. after midnight EGD with biopsy on 01/02/2020 under IV sedation Procedure, risks, benefits, complications, including bowel perforation, bleeding, stroke, cardiac event, have been discussed with the patient, she understands all the above, questions answered, she desires to proceed. IV fluids after administration of the current 2 units of packed blood cells
[2020-01-02] MEDS ORDERED: NORMAL SALINE 1000 ML 1,000 ML IV PRN (02:01)
[2020-01-02] MEDS: IPRATROPIUM/ALBUTEROL 0.5-2.5 MG/3 ML AMPUL NEB PRN ×4 (05:00→21:01)
[2020-01-02] MEDS ORDERED: PROPOFOL INJ 200 MG/20 ML VIAL IV ONE (07:31)
[2020-01-02 08:08] LABS: MEAN CORPUSCULAR HEMOGLOBIN 21.6 pg (27.0-33.4); MEAN CORPUSCULAR HGB CONC 31.2 g/dL (32.0-36.0); PLATELET COUNT 355 10^3/uL (150-450); RED CELL DISTRIBUTION WIDTH 23.6 % (11.5-14.0); WHITE BLOOD COUNT 9.7 10^3/uL (4.0-10.5)
[2020-01-02] MEDS ORDERED: EPINEPHRINE INJ 1 MG/10 ML DISP.SYRIN ONE (08:25)
[2020-01-02 08:30] LABS: MEAN CORPUSCULAR VOLUME 70 fl (80-97)
[2020-01-02 08:33] LABS: ABSOLUTE LYMPHOCYTES# (MANUAL) 2.6 10^3/uL (0.5-4.7); ABSOLUTE MONOCYTES # (MANUAL) 0.1 10^3/uL (0.1-1.4); BAND NEUTROPHILS % (MANUAL) 1 % (3-5); BASOPHILS % (MANUAL) 0 % (0-2); EOSINOPHILS % (MANUAL) 0 % (0-6); LYMPHOCYTES % (MANUAL) 27 % (13-45); MONOCYTES % (MANUAL) 1 % (3-13); SEGMENTED NEUTROPHILS % (MAN) 71 % (42-78); TOTAL CELLS COUNTED 100
[2020-01-02 08:36] LABS: ANISOCYTOSIS 3+; BURR CELLS 1+; HYPOCHROMASIA 2+; POIKILOCYTOSIS 2+; SMUDGE CELLS PRESENT; TARGET CELLS 2+
[2020-01-02 08:37] LABS: PLATELET COMMENT ADEQUATE
[2020-01-02 08:46] LABS: HEMOGLOBIN 7.8 g/dL (12.0-15.5)
--- NOTE | 2020-01-02 09:36 | Operative Report ---
Operative Report DATE OF SURGERY: 01/02/20 PREOPERATIVE DIAGNOSIS: Iron deficient anemia, unknown cause POSTOPERATIVE DIAGNOSIS: Same, minimal distal gastritis OPERATION: Upper gastroduodenoscopy SURGEON: JANE AYALA ANESTHESIA: Moderate Sedation TISSUE REMOVED OR ALTERED: None COMPLICATIONS: None ESTIMATED BLOOD LOSS: None INTRAOPERATIVE FINDINGS: Minimal distal gastritis, no ulcerations lesions identified throughout the esophagus, stomach, and duodenum up to the third portion PROCEDURE: The procedure was done in surgery, the patient was placed in a lateral decubitus on the surgical bed; IV sedation was provided by the anesthesiologist, the gastroscope was inserted into the mouth, esophagus, stomach, and first, second, and third portion of the duodenum. The preparation was good, and no masses, polyps, strictures, mucosal changes, or ulcerations were noted. The duodenum was normal. The scope was then slowly withdrawn into the stomach, retroflexed: the pylorus presented with minimal superficial gastritis; fundus and the GE junction appeared to be within the normal limits. The scope was slowly withdrawn into the esophagus which appeared to be normal and removed from the patient mouth without difficulty. The patient tolerated procedure well and transferred to the recovery room in satisfactory conditions.
--- NOTE | 2020-01-02 09:37 | Progress Note ---
Provider Note Provider Note: EGD performed today reveals only minimal superficial distal gastritis located in the pylorus, no lesions noted. I do not believe these gastritis is the cause of the patient anemia. I will sign off. Please call me with questions
[2020-01-02] MEDS: LISINOPRIL 10 MG TABLET PO SCH (09:55)
[2020-01-02] MEDS: OXYCODONE HCL IR 5 MG TABLET PO PRN ×2 (09:56→22:27)
[2020-01-02] MEDS: METOPROLOL TARTRATE 25 MG TABLET PO SCH (09:56)
[2020-01-02] MEDS ORDERED: FERRIC CARBOXYMALTOSE 750 MG in NORMAL SALINE 250 ML IV SCH (10:00)
[2020-01-02] MEDS: FLUTICASONE/UMECLIDIN/VILANTER 100-62.5-25 MCG/DOSE IH SCH (10:01)
[2020-01-02] MEDS ORDERED: NORMAL SALINE 250 ML IV PRN ×2 (12:52)
--- NOTE | 2020-01-02 13:06 | PDOC PROGRESS REPORT ---
Subjective Date:: 01/02/20 Subjective:: Patient was seen by the bedside, the posttransfusion hemoglobin 7.8, she will ne ed 2 more units of packed red blood cells. She was seen by the surgeon she underwent EGD today which was essentially normal, there was no ulcer there was no bleeding lesion demonstrated. She has severe iron deficiency anemia which could be from chronic blood loss or from inadequate absorption of iron element from the GI tract. So far from EGD and colonoscopy there is no evidence of blood loss as I indicated she may need capsule endoscopy outpatient. She also was given a dose of Injectafer today she will receive second dose next week Sunday. Reason For Visit: SEVERE IRON DEFICIENCY ANEMIA Physical Exam Vital Signs: Temp Pulse Resp BP Pulse Ox 98.7 F 58 L 16 133/41 H 97 01/02/20 09:45 01/02/20 09:45 01/02/20 09:45 01/02/20 09:45 01/02/20 09:45 Intake & Output 01/01/20 01/02/20 01/03/20 06:59 06:59 06:59 Intake Total 560 800 Output Total 0 Balance 560 800 Weight 109.27 kg General appearance: PRESENT: no acute distress Eye exam: PRESENT: PERRLA Respiratory exam: PRESENT: clear to auscultation dana Cardiovascular exam: PRESENT: +S1, +S2 GI/Abdominal exam: PRESENT: soft Neurological exam: PRESENT: alert Results Laboratory Results: 01/02/20 07:42 01/01/20 13:55 01/01/20 01/01/20 01/01/20 13:55 13:55 13:55 WBC 10.7 H RBC 3.22 L Hgb 6.4 L Hct 21.3 L MCV 66 L MCH 19.9 L MCHC 30.2 L RDW 21.7 H Plt Count 412 Seg Neutrophils % Not Reportable Retic Count (auto) Sodium 138.2 Potassium 4.2 Chloride 105 Carbon Dioxide 27 Anion Gap 6 BUN 12 Creatinine 0.75 Est GFR ( Amer) > 60 Glucose 89 Calcium 9.4 Iron TIBC Ferritin Total Bilirubin 0.2 AST 29 Alkaline Phosphatase 79 Total Protein 6.8 Albumin 3.7 Vitamin B12 Folate Blood Type B POSITIVE Antibody Screen NEGATIVE 01/01/20 01/01/20 01/02/20 13:55 13:55 07:42 WBC 9.7 RBC 3.60 L Hgb 7.8 L Hct 25.0 L MCV 70 L D MCH 21.6 L MCHC 31.2 L RDW 23.6 H Plt Count 355 Seg Neutrophils % Not Reportable Retic Count (auto) 2.55 Sodium Potassium Chloride Carbon Dioxide Anion Gap BUN Creatinine Est GFR ( Amer) Glucose Calcium Iron < 10.1 L TIBC 448 Ferritin 8.64 L Total Bilirubin AST Alkaline Phosphatase Total Protein Albumin Vitamin B12 977.0 H Folate > 20.00 Blood Type Antibody Screen Impressions: Chest X-Ray 01/01/20 13:35 IMPRESSION: No acute cardiopulmonary disease. Right MediPort catheter with tip extending into the right internal jugular vein unchanged from prior. Assessment & Plan - Diagnosis (1) Iron deficiency anemia due to chronic blood loss Is this a current diagnosis for this admission?: Yes Plan: She will receive 2 doses of blood transfusion, packed red blood cells today (2) Chronic obstructive pulmonary disease (COPD) Qualifiers: COPD type: unspecified COPD Qualified Code(s): J44.9 - Chronic obstructive pulmonary disease, unspecified Is this a current diagnosis for this admission?: Yes - Time Time Spent with patient: 25-34 minutes Level of Care: MEDICAL Medications reviewed and adjusted accordingly: Yes Anticipated discharge: Home Anticipated DC Timeframe: within 48 hours
--- NOTE | 2020-01-02 17:50 | RADIOLOGY REPORT (SQ) ---
EXAM DESCRIPTION: CHEST SINGLE VIEW IMAGES COMPLETED DATE/TIME: 01/02/2020 4:40 pm REASON FOR STUDY: INCREASED WHEEZING COMPARISON: 01/01/2020 EXAM PARAMETERS: NUMBER OF VIEWS: One view. TECHNIQUE: Single frontal radiographic view of the chest acquired. RADIATION DOSE: NA LIMITATIONS: None. FINDINGS: LUNGS AND PLEURA: Lungs are hyperinflated and No opacities, masses or pneumothorax. No ple ural effusion. MEDIASTINUM AND HILAR STRUCTURES: No masses. Contour normal. HEART AND VASCULAR STRUCTURES: Heart normal in size. Normal vasculature. BONES: No acute findings. HARDWARE: Unchanged right MediPort catheter with tip extending into the right IJ. OTHER: No other significant finding. IMPRESSION: No significant interval change. No acute cardiopulmonary disease. TECHNICAL DOCUMENTATION: JOB ID: [id number] 2010 [employer]- All Rights Reserved Reading location - IP/workstation name: [email or web address]
[2020-01-02] MEDS: GUAIFENESIN 600 MG TABLET.SA PO SCH (18:47)
[2020-01-02] MEDS: PRAMIPEXOLE DI-HCL 0.25 MG TABLET PO SCH (22:27)
[2020-01-03] MEDS: OXYCODONE HCL IR 5 MG TABLET PO PRN ×2 (04:28→12:07)
[2020-01-03 06:00] LABS: ABSOLUTE BASOPHILS # (AUTO) 0.1 10^3/uL (0.0-0.2); ABSOLUTE EOSINOPHILS # (AUTO) 0.3 10^3/uL (0.0-0.6); MEAN CORPUSCULAR HEMOGLOBIN 23.4 pg (27.0-33.4); TOTAL CELLS COUNTED % (AUTO) 100 %
[2020-01-03 06:25] LABS: MEAN CORPUSCULAR VOLUME 73 fl (80-97); RED BLOOD COUNT 4.27 10^6/uL (3.72-5.28)
[2020-01-03 06:26] LABS: BASOPHILS % (AUTO) 1.1 % (0-2); EOSINOPHILS % (AUTO) 2.4 % (0-6); LYMPHOCYTES % (AUTO) 27.1 % (13-45); MEAN CORPUSCULAR HGB CONC 32.3 g/dL (32.0-36.0); MONOCYTES % (AUTO) 8.8 % (3-13); PLATELET COUNT 316 10^3/uL (150-450); RED CELL DISTRIBUTION WIDTH 25.7 % (11.5-14.0); SEGMENTED NEUTROPHILS % (AUTO) 60.6 % (42-78)
[2020-01-03 06:27] LABS: ABSOLUTE NEUT (AUTO) 6.6 10^3/uL (1.7-8.2)
[2020-01-03 07:00] LABS: ANISOCYTOSIS 3+; POIKILOCYTOSIS 3+; TOXIC GRANULATION SLIGHT
[2020-01-03 07:01] LABS: BURR CELLS 1+; OVALOCYTES 3+; SCHISTOCYTES 2+; TARGET CELLS 3+; TEAR DROP CELLS 2+
[2020-01-03 07:02] LABS: PLATELET COMMENT ADEQUATE
[2020-01-03] MEDS: IPRATROPIUM/ALBUTEROL 0.5-2.5 MG/3 ML AMPUL NEB PRN ×2 (09:29→15:48)
[2020-01-03] MEDS: LISINOPRIL 10 MG TABLET PO SCH (09:42)
[2020-01-03] MEDS: GUAIFENESIN 600 MG TABLET.SA PO SCH ×2 (09:42→14:35)
[2020-01-03] MEDS: METOPROLOL TARTRATE 25 MG TABLET PO SCH (09:43)
[2020-01-03] MEDS: FLUTICASONE/UMECLIDIN/VILANTER 100-62.5-25 MCG/DOSE IH SCH (09:45)
--- NOTE | 2020-01-03 14:37 | PDOC DISCHARGE SUMMARY ---
Impression - Admit/DC Date/PCP Admission Date/Primary Care Provider: 01/01/20 16:55 SYDNEE FLORES MD Discharge Date: 01/03/20 - Discharge Diagnosis (1) Iron deficiency anemia due to chronic blood loss Is this a current diagnosis for this admission?: Yes (2) Chronic obstructive pulmonary disease (COPD) Is this a current diagnosis for this admission?: Yes - Additional Information Resuscitation Status: Full Code Discharge Diet: As Tolerated, Regular Referrals: SYDNEE FLORES MD [Primary Care Provider] - Prescriptions: Fluticasone/Umeclidin/Vilanter [Trelegy 100-62.5-25 Mcg Ellipta 14 Dose/Dpi] 1 inh IH DAILY #2 inhaler Home Medications: Aspirin [Ecotrin 81 mg EC Tablet] 81 mg PO DAILY 01/02/20 Multivit-Min36/Iron/Folic Acid [Geritol Complete Tablet] 1 each PO DAILY 01/02/20 Pramipexole Di-HCl [Pramipexole Dihydrochloride] 0.125 mg PO DAILY 01/02/20 Ferric Carboxymaltose [Injectafer Inj 750 mg/15 ml Vial] 750 mg IV Q7D vial 01/03/20 Fluticasone/Umeclidin/Vilanter [Trelegy 100-62.5-25 Mcg Ellipta 14 Dose/Dpi] 1 inh IH DAILY #2 inhaler 01/03/20 Lisinopril [Prinivil 10 mg Tablet] 10 mg PO DAILY tablet 01/03/20 Metoprolol Tartrate [Lopressor 25 mg Tablet] 25 mg PO DAILY tablet 01/03/20 Pramipexole Di-HCl [Mirapex 0.25 mg Tablet] 0.25 mg PO QHS tablet 01/03/20 History of Present Illiness History of Present Illness: BRITTANI RAMOS is a 64 year old female, She came to the office for the first time as a new patient evaluation on 11/01/2019, I saw her in the office yesterday, she complained of shortness of breath, she has history of COPD, still actively smoking because of her symptoms and the fact that she was pale on examination I felt she needed to have hemogram done, the laboratory called me today that the hemoglobin was 6, I called the patient to go to emergency room because she will need to be admitted to the hospital.She has severe iron deficiency anemia, the iron indices were low, she told me yesterday that she recently had a colonoscopy about few days ago. She is very symptomatic with shortness of breath, extreme fatigue. On direct questioning she stated that this has been ongoing for a while suggesting to me that she probably not absorbing iron from the GI tract, she will be transfused with iron, Injectafer, she will receive the first dose on this admission, she will receive the second dose 7 days from the first dose was infused. She denies any passage of black tarry stool. . Hospital Course Hospital Course: Patient was admitted for the management of iron deficiency anemia, severe, she was transfused with 4 units of red blood cells. On admission the hemoglobin was 6,. The posttransfusion abdomen was 10 she also received a dose of Injectafer, she is due for second dose in 7 days which will be next Sunday. She was seen in consultation by the surgeon she underwent EGD which was normal. She recently had a colonoscopy few days ago according to her it was normal except for 1 polyp. She has underlining COPD this was treated with Trelegy with rescue inhaler DuoNeb. Physical Exam Vital Signs: Temp Pulse Resp BP Pulse Ox 97.6 F 83 18 129/81 H 95 01/03/20 11:05 01/03/20 11:05 01/03/20 11:05 01/03/20 11:05 01/03/20 11:05 Intake & Output 01/02/20 01/03/20 01/04/20 06:59 06:59 06:59 Intake Total 560 1955 Output Total 0 Balance 560 1955 Weight 109.27 kg 110.1 kg General appearance: PRESENT: no acute distress Eye exam: PRESENT: PERRLA Respiratory exam: PRESENT: clear to auscultation dana Cardiovascular exam: PRESENT: +S1, +S2 GI/Abdominal exam: PRESENT: soft Neurological exam: PRESENT: alert Results Laboratory Results: WBC 11.0 10^3/uL (4.0-10.5) H 01/03/20 05:33 RBC 4.27 10^6/uL (3.72-5.28) 01/03/20 05:33 Hgb 10.0 g/dL (12.0-15.5) L D 01/03/20 05:33 Hct 31.0 % (36.0-47.0) L 01/03/20 05:33 MCV 73 fl (80-97) L 01/03/20 05:33 MCH 23.4 pg (27.0-33.4) L 01/03/20 05:33 MCHC 32.3 g/dL (32.0-36.0) 01/03/20 05:33 RDW 25.7 % (11.5-14.0) H 01/03/20 05:33 Plt Count 316 10^3/uL (150-450) 01/03/20 05:33 Lymph % (Auto) 27.1 % (13-45) 01/03/20 05:33 [place] % (Auto) 8.8 % (3-13) 01/03/20 05:33 Eos % (Auto) 2.4 % (0-6) 01/03/20 05:33 Baso % (Auto) 1.1 % (0-2) 01/03/20 05:33 Reticulocyte # 0.081 10^6/uL (0.028-0.122) 01/01/20 13:55 Absolute Neuts (auto) 6.6 10^3/uL (1.7-8.2) 01/03/20 05:33 Absolute Lymphs (auto) 3.0 10^3/uL (0.5-4.7) 01/03/20 05:33 Absolute Monos (auto) 1.0 10^3/uL (0.1-1.4) 01/03/20 05:33 Absolute Eos (auto) 0.3 10^3/uL (0.0-0.6) 01/03/20 05:33 Absolute Basos (auto) 0.1 10^3/uL (0.0-0.2) 01/03/20 05:33 Total Counted 100 01/02/20 07:42 Seg Neutrophils % 60.6 % (42-78) 01/03/20 05:33 Seg Neuts % (Manual) 71 % (42-78) 01/02/20 07:42 Band Neutrophils % 1 % (3-5) L 01/02/20 07:42 Lymphocytes % (Manual) 27 % (13-45) 01/02/20 07:42 Atypical Lymphs % 1 % (0) 01/01/20 13:55 Monocytes % (Manual) 1 % (3-13) L 01/02/20 07:42 Eosinophils % (Manual) 0 % (0-6) 01/02/20 07:42 Basophils % (Manual) 0 % (0-2) 01/02/20 07:42 Abs Neuts (Manual) 7.0 10^3/uL (1.7-8.2) 01/02/20 07:42 Abs Lymphs (Manual) 2.6 10^3/uL (0.5-4.7) 01/02/20 07:42 Abs Monocytes (Manual) 0.1 10^3/uL (0.1-1.4) 01/02/20 07:42 Absolute Eos (Manual) 0.0 10^3/uL (0.0-0.6) 01/02/20 07:42 Abs Basophils (Manual) 0.0 10^3/uL (0.0-0.2) 01/02/20 07:42 Smudge Cells PRESENT 01/02/20 07:42 Toxic Granulation SLIGHT 01/03/20 05:33 Large Platelets PRESENT 01/01/20 13:55 Platelet Comment ADEQUATE 01/03/20 05:33 Polychromasia 1+ 01/01/20 13:55 Hypochromasia 2+ 01/02/20 07:42 Poikilocytosis 3+ 01/03/20 05:33 Anisocytosis 3+ 01/03/20 05:33 Microcytosis 1+ 01/02/20 07:42 Target Cells 3+ 01/03/20 05:33 Tear Drop Cells 2+ 01/03/20 05:33 Ovalocytes 3+ 01/03/20 05:33 [place] Bodies PRESENT 01/01/20 13:55 [place] Cells 1+ 01/03/20 05:33 Acanthocytes (Spur) 1+ 01/01/20 13:55 Schistocytes 2+ 01/03/20 05:33 Retic Count (auto) 2.55 % (0.66-2.85) 01/01/20 13:55 Sodium 138.2 mmol/L (137-145) 01/01/20 13:55 Potassium 4.2 mmol/L (3.6-5.0) 01/01/20 13:55 Chloride 105 mmol/L (98-107) 01/01/20 13:55 Carbon Dioxide 27 mmol/L (22-30) 01/01/20 13:55 Anion Gap 6 (5-19) 01/01/20 13:55 BUN 12 mg/dL (7-20) 01/01/20 13:55 Creatinine 0.75 mg/dL (0.52-1.25) 01/01/20 13:55 Est GFR ( Amer) > 60 (>60) 01/01/20 13:55 Est GFR (MDRD) Non-Af > 60 (>60) 01/01/20 13:55 Glucose 89 mg/dL (75-110) 01/01/20 13:55 Calcium 9.4 mg/dL (8.4-10.2) 01/01/20 13:55 Iron < 10.1 ug/dL (37-170) L 01/01/20 13:55 TIBC 448 ug/dL (250-450) 01/01/20 13:55 Iron Saturation UNABLE TO CALCULATE % (15% - 50%) 01/01/20 13:55 Ferritin 8.64 ng/mL (11.1-264.0) L 01/01/20 13:55 Total Bilirubin 0.2 mg/dL (0.2-1.3) 01/01/20 13:55 Direct Bilirubin 0.1 mg/dL (0.0-0.4) 01/01/20 13:55 Neonat Total Bilirubin Not Reportable 01/01/20 13:55 Neonat Direct Bilirubin Not Reportable 01/01/20 13:55 Neonat Indirect Bili Not Reportable 01/01/20 13:55 AST 29 U/L (14-36) 01/01/20 13:55 ALT 24 U/L (<35) 01/01/20 13:55 Alkaline Phosphatase 79 U/L (38-126) 01/01/20 13:55 Total Protein 6.8 g/dL (6.3-8.2) 01/01/20 13:55 Albumin 3.7 g/dL (3.5-5.0) 01/01/20 13:55 Vitamin B12 977.0 pg/mL (239-931) H 01/01/20 13:55 Folate > 20.00 ng/mL (>2.76) 01/01/20 13:55 Influenza A (RT-PCR) NEGATIVE (NEGATIVE) 01/02/20 02:40 Influenza B (RT-PCR) NEGATIVE (NEGATIVE) 01/02/20 02:40 RSV (RT-PCR) NEGATIVE (NEGATIVE) 01/02/20 02:40 SARS-CoV-2 Rap RNA(RT-PCR) NEGATIVE (NEGATIVE) 01/02/20 02:40 Blood Type B POSITIVE 01/01/20 13:55 Blood Type Confirm B POSITIVE 01/01/20 13:55 Antibody Screen NEGATIVE 01/01/20 13:55 Crossmatch See Detail 01/01/20 13:55 Impressions: Chest X-Ray 01/01/20 13:35 IMPRESSION: No acute cardiopulmonary disease. Right MediPort catheter with tip extending into the right internal jugular vein unchanged from prior. Chest X-Ray 01/02/20 00:00 IMPRESSION: No significant interval change. No acute cardiopulmonary disease. Stroke Is this a Stroke Patient?: No Acute Heart Failure Is this a Heart Failure Patient?: No
[2020-01-03 15:28] VITALS: BP 119/68
== END 2020-01-03 16:50 | disposition home or self-care (01) ==
LOC: ER 13:18 → EH 16:55 → 4S 17:42 → 2N 01-02 22:57
PROVIDERS: ADMIT Internal Medicine; ATTEND Internal Medicine
DX: D50.0 Iron deficiency anemia secondary to blood loss (chronic) (principal); J44.9 Chronic obstructive pulmonary disease, unspecified; K29.60 Other gastritis without bleeding; I10 Essential (primary) hypertension; F17.200 Nicotine dependence, unspecified, uncomplicated; E66.9 Obesity, unspecified; G25.81 Restless legs syndrome; Z20.828 Contact with and (suspected) exposure to other viral communicable diseases; Z79.82 Long term (current) use of aspirin; K21.9 Gastro-esophageal reflux disease without esophagitis; E78.5 Hyperlipidemia, unspecified; G89.21 Chronic pain due to trauma; M54.5 Low back pain; Z98.890 Other specified postprocedural states; Z79.899 Other long term (current) drug therapy; Z86.010 Personal history of colon polyps; Z86.79 Personal history of other diseases of the circulatory system; Z95.5 Presence of coronary angioplasty implant and graft; Z82.49 Family history of ischemic heart disease and other diseases of the circulatory system; Z83.3 Family history of diabetes mellitus; Z85.41 Personal history of malignant neoplasm of cervix uteri; Z95.828 Presence of other vascular implants and grafts
CPT/HCPCS: 93005; 36591; 94640 ×4; 99285; 43235; 86900; 86901; 36415 ×3; 36430; 86850; 82607; 82728; 82746; 83540; 83550; 85025 ×3; 0241U ×4; 85045; 80053; 86920; 71045 ×2; 93010; 94667; 94668; 00731; G0378 ×4; P9016 ×2; A9270 ×11; J7030; J7050 ×2; J2704; J1439; J3490; C9803; 731; J0171

== ENCOUNTER 2020-01-14 09:22 | Outpatient (CLI) | payer MEDICARE, MEDICAID ==
[~2020-01-14 09:22] MED LIST: FERRIC CARBOXYMALTOSE 750 MG in NORMAL SALINE 250 ML IV PRN
[2020-01-14 09:51] VITALS: BP 143/60
== END 2020-01-14 10:30 | disposition home or self-care (01) ==
LOC: II 09:22 → 5TH 09:29 → II 10:30
PROVIDERS: ATTEND Internal Medicine
DX: D50.0 Iron deficiency anemia secondary to blood loss (chronic) (principal)
CPT/HCPCS: 96374; J7050; J1439; J1642

== ENCOUNTER 2020-01-23 10:07 | Outpatient (CLI) | payer MEDICARE, MEDICAID ==
[2020-01-23 10:34] VITALS: BP 158/79
== END 2020-01-23 11:09 | disposition home or self-care (01) ==
LOC: II 10:07 → 5TH 10:14 → II 11:09
PROVIDERS: ATTEND Internal Medicine
DX: D50.0 Iron deficiency anemia secondary to blood loss (chronic) (principal)
CPT/HCPCS: 96374; J7050; J1439; J1642